=== PATIENT | female | born 1960 | race Caucasian/White ===

== ENCOUNTER 2016-05-30 16:19 | Inpatient (IN) | payer OTHER ==
--- NOTE | ~2016-05-30 | DS ---
Discharge Summary [facility] [address] [facility] [place]. [address] NAME: CLEMENTINE ECHEVARRIA : 60 STATUS : ADM IN [facility]#: [id number] AGE: 55 ADM/REG DATE : 05/30/16 MR#: [id number] REPORT SERV DATE: 06/16/16 DICTATED BY: EFREN GAY DATE: 06/15/16 REPORT STATUS : Draft TRANSCRIBED BY: MODL DATE: 06/15/16 ADMISSION DATE: 05/30/2016 DISCHARGE DATE: HISTORY: The patient is a 55-year-old female with a history of Crohn's disease and hypertension, who presented to the emergency room with a complaint of diarrhea, weakness, and syncopal episode. For further details, please refer to H and P dictated by Dr. Terry on 05/30/2016. HOSPITAL COURSE: Upon presenting to the emergency room, the patient acutely decompensated prompting transfer to the intensive care unit. For further details, please refer to interim discharge summary dictated by Dr. Torres on 06/11/2016. I assumed care of the patient on 06/12/2016. At the time of my assumption of care, the patient remained hemodynamically stable, however, she was significantly weak and her lipase level was markedly elevated. The patient was still being followed by Nephrology. The patient did have leukocytosis at the time of transfer out of the ICU. The patient's electrolytes and blood work was followed closely with significant improvement. For her legionella pneumonia, the patient was continued on antibiotics. Her lipase was monitored. At the time of discharge from ICU, the patient did have abdominal pain. However, during her course in the medical floor, her pain has progressively declined. Her lipase level is now within normal limits. Also, the patient did have episodes of atrial fibrillation in the intensive care unit, however, while on the floor, the patient has remained in normal sinus rhythm. Also, the patient has remained afebrile throughout her hospitalization with progressive improvement during her hospital course. Given her hemodynamic stability and significant improvement, the patient will be transferred to [facility] for rehab, plan has been discussed with the patient who voices understanding and is agreeable with this plan. DISCHARGE DIAGNOSES: 1. Leukocytosis. 2. Pancreatitis. 3. History of Crohn disease. 4. Hypokalemia. 5. Atrial fibrillation. 6. Hypertension. 7. Legionella pneumonia. DISCHARGE EXAM: VITAL SIGNS: Blood pressure 125/58 with a pulse of 94, respiration 18, O2 saturation 93% on room air, temperature 97.5. GENERAL: The patient is lying in bed, in no acute distress. Appears stated age. HEENT: Normocephalic, atraumatic. Extraocular motors intact. Moist oral mucosa. NECK: Right central line noted in the right. Trachea midline and symmetric. No JVD noted. CHEST: Nontender to palpation. CARDIOVASCULAR: Regular rate and rhythm. S1, S2. No murmurs, rubs, or gallops. LUNGS: Clear to auscultation bilaterally. ABDOMEN: Positive bowel sounds. Mild tenderness noted in the lower quadrant and superior pubic area. Discharge Summary [address] [address] NAME: CLEMENTINE ECHEVARRIA : 60 STATUS : ADM IN [facility]#: [id number] AGE: 55 ADM/REG DATE : 05/30/16 MR#: [id number] REPORT SERV DATE: 06/16/16 DICTATED BY: EFREN GAY DATE: 06/15/16 REPORT STATUS : Draft TRANSCRIBED BY: DALY DATE: 06/15/16 EXTREMITIES: No cyanosis, no clubbing, no edema. NEURO: Alert and oriented x3. No focal deficits appreciated. DISCHARGE MEDICATIONS: 1. Amiodarone 200 mg p.o. q.8 hours to stop on 06/19/2016. 2. Bumex 1 mg p.o. daily. 3. Cholestyramine 4 mg p.o. nightly. 4. Pepcid 40 mg IV p.o. at bedtime. 5. Levaquin 750 mg p.o. q.2 days. To stop 06/18/2016. 6. Melatonin 3 mg p.o. at bedtime. 7. Nicotine patch 14 mg topical daily. 8. Magjack mouthwash or MD Deluna mouthwash 5 mL p.o. liquid q.3 times daily. 9. Pantoprazole 40 mg p.o. daily. 10.Florastor 1 cap p.o. twice a day. 11.Valacyclovir 1000 mg p.o. at bedtime, to stop 06/18/2016. 12.DuoNebs. DISPOSITION: The patient will be discharged to [facility], activity as tolerated. DIET: Renal diet. Greater than 30 minutes was spent coordinating care, dictation of note, coordinating medical discharge, discussion of case with Case Management, and medication reconciliation. ANDREAS/DALY Efren Gay MD / [id number] CC: DO Froy Huston Jr., M.D.
--- NOTE | ~2016-05-30 | CN ---
Consultation Report [facility] [address] [place]. [address] NAME: CLEMENTINE ECHEVARRIA : 60 STATUS : ADM IN PAT#: [id number] AGE: 55 ADM/REG DATE : 05/30/16 MR#: [id number] REPORT SERV DATE: 05/31/16 DICTATED BY: DALLAS GIL DATE: 05/31/16 REPORT STATUS : Draft TRANSCRIBED BY: MODL DATE: 05/31/16 CONSULTATION DATE OF CONSULTATION: 05/31/2016 HISTORY OF PRESENT ILLNESS: This is a 55-year-old patient who was transferred to our service at the request of Dr. Irasema Olguin. The patient was admitted to the hospital on 05/30/2016 and has a known history of Crohn's disease, on immunotherapy, followed as an outpatient by Dr. Sanchez, and had developed progressive diarrhea and volume depletion over a week prior to admission. Apparently, she had a syncopal episode at home, became extremely weak, and had been down on the floor probably for several hours until her family finally found her. There were no associated fever or chills reported, no chest pain, profuse diarrhea was but it was not associated with nausea or vomiting. The patient was then subsequently admitted to the Hospitalist Service, and then we were asked to take over her care, concerns being hypoxia and pneumonia. The patient was subsequently transferred and upon arrival to the CCU, the patient was in atrial fibrillation with RVR, heart rate 140, blood pressure was elevated to the 160s, and in respiratory distress. She had severe metabolic acidosis and was found to have renal failure and rhabdomyolysis. The case was discussed with the family and they are currently in agreement with intubation and/or CRRT or dialysis if needed. The patient is in serious condition. ALLERGIES: THE PATIENT'S ALLERGIES ARE TO SULFA; HANH DRUGS, I AM NOT SURE WHAT HANH DRUGS ARE, WE WILL NEED TO CHECK WITH THE FAMILY ON THAT; AND PHENYLENEDIAMINE; ALL OF WHICH CAUSE SKIN PEELING. MEDICATIONS: Her home medications include Omnicef, Flexeril, hyoscyamine, Imodium, Align, Systane, Anucort, Stresstabs. PAST MEDICAL HISTORY: Significant for Crohn's, on Humira. She is status post tonsillectomy, cholecystectomy, hysterectomy, sphincterotomy, and nose basal cell carcinoma. SOCIAL HISTORY: Significant for smoking 1 pack a day, rare alcohol, and no illicit drug use. FAMILY HISTORY: Significant for colon cancer, premature heart attacks, and rheumatoid arthritis. REVIEW OF SYSTEMS: Could not be obtained from the patient since she is orally intubated and sedated. PHYSICAL EXAMINATION: VITAL SIGNS: Post intubation, temperature was 97.8; heart rate now 138, still atrial fibrillation; O2 saturation was in the 90s; blood pressure is 118/64. The patient was seen prior to intubation and appears in respiratory distress. Work of breathing was at least 28 to 30 times a minute. She is not diaphoretic. Consultation Report [facility] [address] [place]. [address] NAME: CLEMENTINE ECHEVARRIA : 60 STATUS : ADM IN [facility]#: [id number] AGE: 55 ADM/REG DATE : 05/30/16 MR#: [id number] REPORT SERV DATE: 05/31/16 DICTATED BY: DALLAS GIL DATE: 05/31/16 REPORT STATUS : Draft TRANSCRIBED BY: DALY DATE: 05/31/16 SKIN: Cool to touch. Complexion is somewhat kip. HEENT: Head is atraumatic and normocephalic. Pupils are sluggishly reactive. Sclerae are anicteric. Conjunctivae are pink. Nasal mucosa is within normal limits. Oral mucosa upon intubation was within normal limits. NECK: Supple without JVD, lymphadenopathy, or thyromegaly. LUNGS: Significant wheezing is heard throughout the right lung field. The left lung field is decreased at the bases. CARDIAC: Reveals an irregularly irregular rhythm. No significant murmurs are heard. BREASTS: Symmetrical without masses. GI: Abdomen is mildly distended. Bowel sounds are present. There is minimal pain to palpation of the abdomen. No organosplenomegaly is appreciated. RECTAL AND GENITAL: Deferred. Clay is in place. EXTREMITIES: Notable for multiple bruising and excoriation of the knees to where the patient fell. There is no skin breakdown. There is no significant bruising as of yet. DIAGNOSTIC STUDIES: Chest x-ray is significant for an infiltrate at the left lung base. CT scan of the chest showed multiple small enlarged lymph nodes of the mediastinum, numerous patchy infiltrates throughout upper and lower lobes with consolidation and atelectasis of the left lower lobe. CT scan of the abdomen: Numerous gas-filled loops of small intestines were seen. Early obstruction or diffuse ileus was suspected. There was some mild stranding of the perinephric tissues and retroperitoneum. No hydronephrosis was seen, and a small left pleural effusion was seen. Most recent electrolytes show a sodium of 122, a potassium of 4.0, chloride of 92, a bicarb of 14, a BUN of 52, a creatinine of 4.85, glucose 122. Troponin is 0.25. C-reactive protein was 346. Procalcitonin on admission was greater than 200. CBC earlier today showed a white cell count of 16.5, a hemoglobin of 11, a hematocrit of 33, a platelet count of 192. Myoglobin was 18,978. ALT was 210, AST 635. TSH was 1.33. Troponin was 0.25 and 0.27. There were T-wave inversions on the EKG laterally. ASSESSMENT AND PLAN: This is a 55-year-old patient with known Crohn's disease, on biologic drugs as per Dr. Sanchez, who presents with a week's worth of diarrhea, weakness, decreased p.o. intake, fall on the day of admission, rhabdomyolysis, acute kidney injury, and what appears to be pneumonia. Since the patient is on Humira, she may very well have atypical infection, so we are going to add a urine for Legionella and strep pneumoniae antigen, swab for flu A and B if not already done, and continue present antibiotics until culture results are back. The patient will be intubated secondary to respiratory distress and a sputum culture, Gram stain, and culture will be obtained. The patient already has blood cultures sent and they are pending. Stool still is yet to be sent. She was started on Vancocin as per GI for possible Clostridium difficile. 1. Acute kidney injury. We will consult Nephrology to evaluate for possible CRRT versus hemodialysis and ask Vascular Surgery to place a Vas-Cath. 2. The patient is extremely agitated and will be sedated with Diprivan and fentanyl added if needed. She may also need to be paralyzed at least short-term to gain better control of her respiratory rate and oxygenation. 3. Atrial fibrillation with rapid ventricular response. Amiodarone drip started as per protocol. Consultation Report [facility] [address]. [address] NAME: CLEMENTINE ECHEVARRIA : 60 STATUS : ADM IN PAT#: [id number] AGE: 55 ADM/REG DATE : 05/30/16 MR#: [id number] REPORT SERV DATE: 05/31/16 DICTATED BY: DALLAS GIL DATE: 05/31/16 REPORT STATUS : Draft TRANSCRIBED BY: MODL DATE: 05/31/16 4. Metabolic acidosis secondary to acute renal failure and rhabdomyolysis. We will need to follow levels closely and we will ask Renal's opinion. 5. Deep venous thrombosis prophylaxis will be with subcu heparin and gastrointestinal prophylaxis will be with IV Protonix. TOTAL TIME: Critical care time spent with this patient began at 4:05 p.m. and ended at 5:05 p.m. for a total time of 60 minutes of critical care time that was used to assess and manage complex metabolic derangements, respiratory failure, renal failure, and circulatory failure. The patient will need vasoactive manipulation, frequent ventilatory manipulation, volume resuscitation, hemodynamic assessment, and decisions regarding philosophy of care. /DALY Dallas Gil M.D. / [id number] CC: Irasema Olguin M.D.
--- NOTE | ~2016-05-30 | OP ---
Record Of Operation [facility] [address] [place]. [address] NAME: CLEMENTINE ECHEVARRIA : 60 STATUS : ADM IN [facility]#: [id number] AGE: 55 ADM/REG DATE : 05/30/16 MR#: [id number] REPORT SERV DATE: 05/31/16 DICTATED BY: ARABELLA VILLAGRAN DATE: 05/31/16 REPORT STATUS : Draft TRANSCRIBED BY: MODNael DATE: 05/31/16 DATE OF PROCEDURE: 05/31/2016 PREOPERATIVE DIAGNOSIS: Acute renal failure requiring hemodialysis. POSTOPERATIVE DIAGNOSIS: Acute renal failure requiring hemodialysis. PROCEDURE: 1. Ultrasound-guided percutaneous access, right internal jugular vein. 2. Placement of right internal jugular vein per Vas-Cath. SURGEON: Arabella Villagran M.D. ANESTHESIA: Local. ESTIMATED BLOOD LOSS: Minimal. COMPLICATIONS: None. INDICATIONS: Ms. Echevarria is a was 55-year-old female in the intensive care unit, critically ill with need of continuous renal replacement therapy. I am asked to place a Vas-Cath. DETAILS OF PROCEDURE: After informed consent was obtained, the patient was prepped and draped in the intensive care unit. I used ultrasound to identify the right internal jugular vein. It was widely patent and easily compressible. Permanent image of vein documenting patency was saved and stored in the patient's chart. I accessed with 18-gauge entry needle and easily passed the J-tipped guidewire. I enlarged the puncture site. I then dilated the subcutaneous tract. I then placed a 15 cm Vas-Cath over the wire without difficulty. Both ports aspirated dark venous blood and flushed easily with heparinized saline. Catheter was secured to the skin with silk suture. Sterile dressings were applied. The patient tolerated the procedure well with no complications. ADELINA/DALY Arabella Villagran M.D. / [id number] CC: Irasema Olguin M.D.
--- NOTE | ~2016-05-30 | CN ---
Consultation Report [facility] [address] [place]. [address] NAME: CLEMENTINE ECHEVARRIA : 60 STATUS : ADM IN [facility]#: [id number] AGE: 55 ADM/REG DATE : 05/30/16 MR#: [id number] REPORT SERV DATE: 05/31/16 DICTATED BY: JEFFREY CALDERÓN V. DATE: 05/31/16 REPORT STATUS : Draft TRANSCRIBED BY: DALY DATE: 05/31/16 RENAL CONSULT DATE OF CONSULTATION: 05/31/2016 REASON FOR CONSULTATION: Seen at the request of Dr. Gil on 05/31/2016, consultation regarding acute kidney injury. HISTORY OF PRESENT ILLNESS: Ms. Echevarria is a 55-year-old white female with history significant for Crohn disease, on chronic immunotherapy in the direction of Dr. Nathanael Sanchez. She has had diarrhea essentially persistently since 05/26/2016. She has had dizziness and very poor p.o. intake at home. She has had some falls at home and may have been down on the ground as long as 2 hours. The patient was admitted on 05/30/2016 with volume depletion and acute kidney injury secondary to this. Earlier today, the patient was very ill appearing and increased respiratory rate was noted. She was transferred to the ICU and subsequently intubated. She was found to be in significant rhabdomyolysis, and we were asked to see her for the acute need of emergent PULL WORKER. REVIEW OF SYSTEMS: Unobtainable due to the patient's current clinical status. PAST MEDICAL HISTORY: Crohn disease, on Humira therapy. PAST SURGICAL HISTORY: Includes tonsillectomy, cholecystectomy, hysterectomy, and basal cell carcinoma removal. SOCIAL HISTORY: Smoked one pack a day. No illicit drug use. ALLERGIES: SULFA DRUGS. HOME MEDICATIONS: Include Tylenol, Omnicef started on 05/28/2016, Flexeril, hyoscyamine, loperamide, probiotic, and vitamin D supplement. PHYSICAL EXAMINATION: VITAL SIGNS: Temperature is 98.6, heart rate 120, and blood pressure currently 137/70. GENERAL: She is a middle-aged white female, on the ventilator, sedated, no increased work of breathing. HEENT: Pupils equally, round, and reactive to light. Sclerae anicteric. Nares are patent bilaterally with no lesions. Oropharynx somewhat dry. No mucosal injury noted. ET tube in place. NECK: Trachea midline. No thyromegaly. No supraclavicular nodes. No axillary lymph nodes. CARDIOVASCULAR: Irregularly irregular rhythm. No rub. CHEST: Few scattered rhonchi bilaterally. ABDOMEN: Mildly distended. Bowel sounds are present. No guarding or rebound. No Consultation Report [facility] [address] [place]. [address] NAME: CLEMENTINE ECHEVARRIA : 60 STATUS : ADM IN PAT#: [id number] AGE: 55 ADM/REG DATE : 05/30/16 MR#: [id number] REPORT SERV DATE: 05/31/16 DICTATED BY: JEFFREY CALDERÓN V. DATE: 05/31/16 REPORT STATUS : Draft TRANSCRIBED BY: DALY DATE: 05/31/16 hepatosplenomegaly was appreciated. Trace lower extremity edema. No clubbing or cyanosis. SKIN: Abrasion noted on the right knee. No other skin lesions were noted. MUSCULOSKELETAL: No musculoskeletal joint tenderness or effusions were noted, however, in knees or ankles bilaterally. IMAGING: CT scan of the abdomen and pelvis done showed no hydronephrosis with dilated loops of small and large intestine. The chest x-ray reviewed by me showed infiltrate in right middle lobe with some haziness present in left lower lobe. LABORATORY DATA: BUN and creatinine 55 and 5.1, CO2 of 20. Sodium 124, potassium 4.1, CPK of 31,000. INR 1.2. White count 21.4, hematocrit 36%. Magnesium 2.8, phosphorus 7.4, albumin 2.1. Total bilirubin within normal limits. AST 1053, ALT 363. Troponin 0.39. IMPRESSION: A 55-year-old white female with acute kidney injury due to volume depletion as well as rhabdomyolysis on chronic immunosuppressive therapy for her Crohn disease. Severe sepsis is a distinct possibility. As stated above, most likely, her acute kidney injury is volume depletion related with perhaps a component of rhabdomyolysis induced injury. The patient profoundly acidotic and with respiratory and metabolic acidosis earlier today, now requiring intubation and mechanical ventilation. PLAN: 1. Proceed with PULL WORKER now with limited ultrafiltration. 2. Will use citrate as replacement fluid at this point, however, we need to monitor closely for signs of citrate toxicity. Her liver function tests as far as INR appear to be reasonable. She has some increased transaminases, AST being very elevated largely due to her muscle injury. 3. We will trend her sodium values as well as her serum sodium is somewhat low at 124. 4. Repeat a CPK in the morning as well. 5. All the above was discussed with the patient's family at the patient's bedside. They are amenable to initiation of PULL WORKER therapy. CP/MODL Jeffrey Calderón M.D. / [id number] CC: Irasema Olguin M.D.
--- NOTE | ~2016-05-30 | CN ---
Consultation Report [facility] [address] [place]. [address] NAME: CLEMENTINE ECHEVARRIA : 60 STATUS : ADM IN [facility]#: [id number] AGE: 55 ADM/REG DATE : 05/30/16 MR#: [id number] REPORT SERV DATE: 06/04/16 DICTATED BY: SID HOU DATE: 06/03/16 REPORT STATUS : Draft TRANSCRIBED BY: MODL DATE: 06/03/16 CARDIOLOGY CONSULTATION DATE OF CONSULTATION: 06/03/2016 INDICATIONS: Atrial fibrillation, RVR. HISTORY OF PRESENT ILLNESS: Ms. Clementine Echevarria is a 55-year-old female, who was initially admitted to the floor and then developed acute illness, transferred to the ICU with severe sepsis, respiratory failure. She has been found to have influenza as well as Legionella pneumonia. She has had intermittent episodes of atrial fibrillation with RVR. She had acute kidney injury, now requiring hemodialysis and vasopressor support. She had a low-grade troponin elevation with a maximum 0.56. Echocardiogram demonstrates normal ejection fraction. She is intubated. She has had intermittent episodes of atrial fibrillation since 05/31/2016. She was in sinus this morning, but now is back in atrial fibrillation with RVR. Cardiology is consulted. Other presenting issue was dramatic diarrhea. She is on immunosuppressive therapy with Humira for Crohn's disease. PAST MEDICAL HISTORY: As described, again notable for Crohn's disease, on immunosuppression with Humira. PRESENT MEDICATIONS: Amiodarone drip, folic acid, subcu heparin, sliding scale insulin, Solu Medrol, Habitrol, Tamiflu, Protonix, Levaquin, Levophed. She is actively receiving CRRT. ALLERGIES: SULFA AND DRUGS WITH A HANH IN THEM. SOCIAL HISTORY: History of smoking. FAMILY HISTORY: Reviewed and noncontributory. REVIEW OF SYSTEMS: As per the HPI. Otherwise, all review of systems negative. PHYSICAL EXAMINATION: VITAL SIGNS: Blood pressure currently 110/70, heart rate is 110, respiratory rate is 18. GENERAL: Appears stated age, no distress. EYES: Sclerae anicteric, no arcus senilis. MOUTH: Oral mucosa moist, lips acyanotic. NECK: Jugular venous pressure normal, no carotid bruits. LUNGS: Coarse breath sounds, diffuse. CARDIAC: Irregular rhythm, tachycardic. No murmurs, gallops or rubs. ABDOMEN: Soft, nondistended, nontender. Consultation Report [facility] [address] [place]. [address] NAME: CLEMENTINE ECHEVARRIA : 60 STATUS : ADM IN PAT#: [id number] AGE: 55 ADM/REG DATE : 05/30/16 MR#: [id number] REPORT SERV DATE: 06/04/16 DICTATED BY: SID HOU DATE: 06/03/16 REPORT STATUS : Draft TRANSCRIBED BY: DALY DATE: 06/03/16 EXTREMITIES: No edema. SKIN: Warm and dry. NEURO/PSYCH: Sedated. DATA: Sodium is 134, potassium 3.8, creatinine 1.4, hemoglobin is 10.4, white count is 40,000. CPK is 3000, procalcitonin 67, AST and ALT are abnormal. Electrocardiogram demonstrates atrial fibrillation with a rate of 129 beats per minute. Delayed R-wave progression. Chest x-ray consistent with possible consolidation. IMPRESSION: Paroxysmal atrial fibrillation in the context of acute illness with sepsis, influenza, Legionella, acute kidney injury with CRRT, Crohn's disease, and immunosuppression. In terms of atrial fibrillation with rapid ventricular response, we will increase her amiodarone infusion, continue 1 mg/minute for the next 10 hours, re-bolus intravenous amiodarone. Add low-dose beta-steve for additional rate control Levophed noted. May be difficult to achieve heart rate control in the context of multiple drivers for rapid ventricular response. FELTON/DALY Sid Hou M.D. / [id number] CC: Ambreen Tinajero Jr., M.D.
--- NOTE | ~2016-05-30 | OP ---
Record Of Operation [facility] [address] [address] NAME: CLEMENTINE ECHEVARRIA : 60 STATUS : ADM IN [facility]#: [id number] AGE: 55 ADM/REG DATE : 05/30/16 MR#: [id number] REPORT SERV DATE: 05/31/16 DICTATED BY: DALLAS GIL DATE: 05/31/16 REPORT STATUS : Draft TRANSCRIBED BY: MODL DATE: 05/31/16 DATE OF PROCEDURE: 05/31/2016 PROCEDURE: Intubation. REASON: Acute respiratory failure. The patient and family are agreeable to intubation. DESCRIPTION OF PROCEDURE: The patient was pre-oxygenated with 100% oxygen and sedated with Diprivan at 10 mL and 20 mg of IV etomidate. GlideScope was used. Vocal cords were well visualized. A 7.5 endotracheal tube was placed on the first attempt with good breath sounds heard bilaterally. CO2 sensor changed appropriate color from blue to yellow. The patient tolerated the procedure well. /DALY Dallas Gil M.D. / [id number] CC: Irasema Olguin M.D.
--- NOTE | ~2016-05-30 | HP ---
History And Physical [place] [id number] [facility] [place]. [address] NAME: CLEMENTINE ECHEVARRIA : 60 STATUS : ADM IN [facility]#: [id number] AGE: 55 ADM/REG DATE : 05/30/16 MR#: [id number] REPORT SERV DATE: 05/30/16 DICTATED BY: ZAKIA SANCHEZ DATE: 05/30/16 REPORT STATUS : Draft TRANSCRIBED BY: DALY DATE: 05/30/16 DATE OF ADMISSION: 05/30/2016 CHIEF COMPLAINT: Approximately one week of diarrhea, weakness, and syncope episode approximately 30 minutes earlier today. HISTORY OF PRESENT ILLNESS: The patient is a 55-year-old female with past medical history of Crohn's disease, followed by Dr. Sanchez on immunotherapy, who over the last week has had progressive diarrhea, volume depletion, dizziness, decreased p.o. intake, however, acute change today when she had tried Imodium supportively without any improvement. Today, she had an episode which she had a syncopal episode, fell out, significant weakness, and had to crawl to the telephone to get help. Upon arrival, the patient is noted to be clinically volume depleted, has had decreased urine output. The symptoms were intermittent, but moderate severity lasting around 30 minutes, quality no pain or radiating symptoms, but has still had a pronounced diarrhea, but no nausea or vomiting. No Fever or chills reported. There were no worsening or relieving symptoms that the patient will call. The patient is accompanied by her who is at bedside. This is her first actual admission for Crohn's flare, as the patient is usually fairly well controlled under care with Dr. Sanchez. The patient denies any recent triggers, any sick contacts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 REVIEW OF SYSTEMS: GENERAL: No fevers, but does have occasional coldness more than usual and hot sweats at times. EYES: No eye pain or visual changes. ENT: No sore throat or congestion. NEURO: No headache, but did have loss of consciousness and syncope episode approximately 30 minutes. No loss of bowel or bladder at that time reported. SKIN: Does have abrasions on trauma sites when she fell and bruising and deep muscle pain. RESPIRATORY: No dyspnea on exertion or cough. CV: No chest pain or palpitations. GI: Diarrhea with Crohn's disease. No acute bleeding, but no nausea or vomiting. : No dysuria or hematuria. MUSCULOSKELETAL: Deep muscle and bone myalgias and arthralgias over the last four days. ENDO: Does have fatigue and no polyuria. HEME: No bleeding or bruising. IMMUNOLOGIC: Rhinorrhea. PSYCH: No anxiety or confusion. PAST MEDICAL HISTORY: Crohn's, on Humira. SURGERIES: Tonsils, gallbladder, hysterectomy, sphincterotomy, and nose basal cell. SOCIAL HISTORY: Smoking at one pack per day tobacco smoker. Rare alcohol. No illicits. History And Physical [address] [address] NAME: CLEMENTINE ECHEVARRIA : 60 STATUS : ADM IN [facility]#: [id number] AGE: 55 ADM/REG DATE : 05/30/16 MR#: [id number] REPORT SERV DATE: 05/30/16 DICTATED BY: ZAKIA SANCHEZ DATE: 05/30/16 REPORT STATUS : Draft TRANSCRIBED BY: DALY DATE: 05/30/16 FAMILY HISTORY: Heart disease, colon cancer, premature heart attack in family member and mother has rheumatoid arthritis. ALLERGIES: TO HANH DRUGS, PHENYLENEDIAMINE, SULFA. MEDICATIONS: Tylenol, cefdinir, Flexeril, Anaspaz, Imodium, Align, Systane, Digestive Advantage, Angicor, and stress tab. EKG: Rate 123, sinus tachycardia with PACs. Rate QTc 423. PHYSICAL EXAMINATION: VITAL SIGNS: The patient's blood pressure 104/61, temperature 98.7, pulse 122, respirations 18, O2 sats 90% on room air. GENERAL: No acute distress, but very frail looking. EYES: No scleral icterus. EOMI. ENT: Nares patent, but dry mucous membranes. Tongue midline. RESPIRATORY: Clear to auscultation. No wheezes or rales. CV: Mildly tachycardic. No rubs or gallops. No pedal edema. CHEST: Equal chest rise. GI: Soft, nontender, and nondistended. Central obesity. : Deferred. MUSCULOSKELETAL: Does have abrasion on the right knee from fall site, otherwise moves all extremities x4. SKIN: Mottled knees, but warm. Abrasion at trauma sites. LYMPH: No cervical or supraclavicular lymphadenopathy. HEME: Bleeding at fall site, but no acute bruising. NEURO: Alert and oriented. Moves all extremities x4. Symmetrical strength. PSYCH: Appropriate mood and affect, pleasant. LABS: Sodium of 123, potassium 3.4, chloride 88, bicarb 19, BUN 40, creatinine 3.41, glucose 110, calcium 8.1, magnesium 3.3, with a troponin of 0.37. Heme profile: WBC count of 15.2, H and H 14.2 and 39.9, platelets 185, bands 35. INR 1.2. Brain without contrast, no acute intracranial pathology reported. ASSESSMENT: 1. Crohn's flare. 2. Acute kidney injury. 3. Volume depletion. 4. Syncope. 5. Hyponatremia. 6. Troponin elevation with likely type 2 myocardial infarction. 7. Metabolic acidosis. 8. Systemic inflammatory response syndrome with bandemia. 9. Tobacco use. PLAN: History And Physical [address] [address] NAME: CLEMENTINE ECHEVARRIA : 60 STATUS : ADM IN [facility]#: [id number] AGE: 55 ADM/REG DATE : 05/30/16 MR#: [id number] REPORT SERV DATE: 05/30/16 DICTATED BY: ZAKIA SANCHEZ DATE: 05/30/16 REPORT STATUS : Draft TRANSCRIBED BY: DALY DATE: 05/30/16 1. For Crohn's flare, IV steroids, IV fluids, IV antibiotics. Continue supportive treatment. H and H, still within normal limits. We will ask Dr. Sanchez for additional assistance due to severity and multiorgan effect. 2. Acute kidney injury. IV fluids, volume depletion. Monitor electrolytes closely. Check ultrasound of kidneys and urine studies. 3. Volume depletion. IV fluids. Does have skin mottling that is likely secondary to profound diarrhea episode from acute Crohn's flare. 4. The Crohn's flare. 5. Syncope. Treat. a. CT head negative. b. Monitor on telemetry, troponins, and ECG. 6. Hyponatremia. Serial sodium checks and normal saline, likely secondary to acute, decreased from Crohn's flare. 7. Troponin elevation, likely with a type 2 supply demand mismatch, but does have coronary history and family with premature coronary disease. No dynamic ST changes. We will monitor EKG and serial troponins. Treat underlying pathology with Crohn's flare and acute kidney injury, hyponatremia, metabolic acidosis, and systemic inflammatory response syndrome. Needs to stop smoking. 8. Metabolic acidosis. Check salicylate and Tylenol levels. Additionally, CPK and myoglobin as the patient had syncope episode and was found on floor. Monitor electrolytes with serial basic metabolic panels until improved. 9. Systemic inflammatory response syndrome. Treat. a. Tachycardia, tachypnea with positive bandemia. IV antibiotics for treatment of Crohn's flare, but will need close monitoring with IV steroids which are also being currently given secondary to Crohn's flare. 10.Tobacco use. Counseled nicotine patch. 11.Guarded prognosis at this time secondary to multitude and multiorgan injury. This has been discussed with the patient and family at bedside. Has to stay greater than two midnight inpatient stay. DDN/MODL Zakia Sanchez MD / [id number] CC: Ambreen Palomino Jr., M.D.
--- NOTE | ~2016-05-30 | CN ---
Consultation Report [facility] [address] [place]. [address] NAME: CLEMENTINE ECHEVARRIA : 60 STATUS : ADM IN [facility]#: [id number] AGE: 55 ADM/REG DATE : 05/30/16 MR#: [id number] REPORT SERV DATE: 06/01/16 DICTATED BY: WELLINGTON MARSHALL DATE: 05/31/16 REPORT STATUS : Draft TRANSCRIBED BY: DALY DATE: 05/31/16 GI CONSULTATION DATE OF CONSULTATION: 05/31/2016 REASON FOR CONSULTATION: Regarding diarrhea and Crohn disease. HISTORY OF PRESENT ILLNESS: This is a 55-year-old woman who presented to the emergency room with dizziness and syncope as well as weakness. She had been doing relatively well until the past 7 to10 days, at which point she had increase in diarrhea symptoms, multiple stools at least 10 per day without blood. She has had intermittent migratory abdominal cramping relieved with a bowel movement. Some nausea but no vomiting. No significant GERD or dysphagia. She has had fever as well. She does take Humira weekly for Crohn disease and had her last dose about one week ago. She is managed by Dr. Sanchez. Last colonoscopy in 2014 showed ulcerations within the ileum and colon polyps removed. MEDICAL HISTORY: Remarkable for Crohn disease as above, cholecystectomy, tonsillectomy, hysterectomy, sphincterotomy noted in the chart, and nasal basal cell carcinoma. ALLERGIES: SULFA AND HANH DRUGS AND PHENYLENEDIAMINE. MEDICATIONS: Tylenol, cefdinir, Flexeril, Anaspaz, Imodium, Align, polyethylene glycol, Digestive Advantage, Anucort, stress tab with vitamin B. Medications in the hospital include folic acid, Habitrol patch, subcu heparin, Levaquin, Flagyl, insulin, and Solu-Medrol 60 mg IV every 12 hours. SOCIAL HISTORY: She does not use alcohol, but does smoke. FAMILY HISTORY: Remarkable for colorectal cancer in first degree relative. REVIEW OF SYSTEMS: A complete review of systems was obtained and negative except that noted in the history of present illness. PHYSICAL EXAMINATION: VITAL SIGNS: She is currently afebrile. Her temperature is 101.1 pulse 108, respirations 26, and blood pressure 156/87. HEENT: Sclerae anicteric. Pharynx is pink without exudate. NECK: Supple without lymphadenopathy. LUNGS: Clear to auscultation over the anterior chest wall. HEART: Tachycardic rate with a regular rhythm. S1, S2 are heard without rubs or gallops. ABDOMEN: Diminished bowel sounds. Belly is soft and nondistended. There is mild diffuse tenderness without rebound or guarding. No hepatosplenomegaly is detected. Overall, benign abdomen. Consultation Report [place] [address] [place]. [address] NAME: CLEMENTINE ECHEVARRIA : 60 STATUS : ADM IN [facility]#: [id number] AGE: 55 ADM/REG DATE : 05/30/16 MR#: [id number] REPORT SERV DATE: 06/01/16 DICTATED BY: WELLINGTON MARSHALL DATE: 05/31/16 REPORT STATUS : Draft TRANSCRIBED BY: DALY DATE: 05/31/16 EXTREMITIES: No pedal edema or rash. NEUROLOGIC: Alert and oriented without focal deficit. Muscle exam is nontender. DATA: White blood cell count 15.2, hematocrit 39.9, MCV 83, platelets 185. She does have a left shift. Her INR is 1.2. Procalcitonin is greater than 200. Sodium 123, bicarb 19, BUN is 40, creatinine 3.41, magnesium is 3.3, calcium 8.1. ALT 210 and AST 635. Troponin 0.37. TSH normal. Chest x-ray shows left lower lobe abnormality, question consolidation. IMPRESSION: 1. Acute on chronic diarrhea with leukocytosis and very elevated procalcitonin. Recent antibiotics question Clostridium difficile colitis. 2. Sepsis. Physiology including acidemia, elevated liver tests, leukocytosis, and fever. 3. Acute renal failure and volume depletion. 4. Crohn disease, on weekly Humira. RECOMMENDATIONS: 1. Empirically over for C. difficile with oral vancomycin and check stool studies for C. difficile toxin, parasite, and culture. Continue intravenous Flagyl. 2. Cover with Levaquin for now given the chest x-ray finding. Await C. difficile toxin. 3. CT of the chest, abdomen, and pelvis. 4. Blood cultures, urinalysis and culture, CRP. 5. Acute hepatitis panel for A, B, and C. 6. Reduce Solu-Medrol to 30 mg IV every 12 hours. 7. Intravenous fluids. 8. Discussed the plan with the patient and family. CC/MODL Wellington Marshall M.D. / [id number] CC: Ambreen Tinajero Jr., M.D. Munford Yates III, M.D.
--- NOTE | ~2016-05-30 | IDS ---
Interim Discharge Summary [facility] [address] [place]. [address] NAME: CLEMENTINE ECHEVARRIA : 60 STATUS : ADM IN [facility]#: [id number] AGE: 55 ADM/REG DATE : 05/30/16 MR#: [id number] REPORT SERV DATE: 06/07/16 DICTATED BY: TALAT HERNANDEZ DATE: 06/07/16 REPORT STATUS : Draft TRANSCRIBED BY: MODL DATE: 06/07/16 ADMISSION DATE: 05/30/2016 DISCHARGE DATE: 05/31/2016 INTERIM DIAGNOSES: 1. Acute hypoxic and hypercapnic respiratory failure. 2. Acute renal failure. 3. Rhabdomyolysis. 4. Atrial fibrillation with rapid ventricular response. 5. Septic shock. 6. Influenza and Legionella pneumonia. 7. Crohn's disease. 8. Persistent marked leukocytosis. ICU COURSE: Please see the dictated H and P and consult notes for full patient presentation and history. BRIEF SUMMARY: This is a 55-year-old, white female with past medical history of Crohn's disease on chronic immunosuppression who was initially admitted to the hospital and then transferred to the ICU back on the with respiratory failure, pneumonia, acute renal failure with metabolic acidosis, rhabdomyolysis, and rapid atrial fibrillation. Her hospital course this week has continued to be complicated by respiratory failure with inability to wean from the ventilator. Continued acute renal failure, [id number] atrial fibrillation, and a persistent leukocytosis. 1. Acute hypoxic and hypercapnic respiratory failure. The patient made very slow progress on the ventilator this week though she has not worsened. I suspect her respiratory failure is more likely ARDS secondary to her pneumonia rather than volume from her renal failure. Despite aggressive volume removal this week, her chest x-ray has only showed mild improvement as has her ability to wean from the ventilator which leads me to think this is more ARDS. We will continue weaning slowly each day and I have already talked to the patient's family about potential for tracheostomy next week if she is unable to wean from the ventilator. 2. Acute renal failure. The patient has remained on CRRT this week per Renal. We were pulling volume aggressively, however, in the last 48 hours had to go up on her pressor requirement quite dramatically. So currently we are running her with no volume removal so as not to worsen her shock. 3. Atrial fibrillation, rapid ventricular response. Cardiology is following and assisting in management of this, has been very difficult to control this week. Currently, she is in sinus rhythm and remains on the amiodarone drip. 4. Septic shock. She remains on low-dose Levophed and vasopressin. 5. Persistent leukocytosis. The patient has had markedly elevated white count in the 40,000s for most of the week. Unclear to this etiology. ID has been following and assisting with managing her antibiotics. We added empiric antifungals 2 days ago and her white count today is beginning to trend down. The oncoming signal engineer will take over tomorrow. Please call if you have any questions. Interim Discharge Summary [address] [place]. [address] NAME: CLEMENTINE ECHEVARRIA : 60 STATUS : ADM IN [facility]#: [id number] AGE: 55 ADM/REG DATE : 05/30/16 MR#: [id number] REPORT SERV DATE: 06/07/16 DICTATED BY: TALAT HERNANDEZ DATE: 06/07/16 REPORT STATUS : Draft TRANSCRIBED BY: DALY DATE: 06/07/16 JESSICA/DALY Talta Hernandez MD / [id number] CC: Ambreen Tinajero Jr., M.D.
--- NOTE | ~2016-05-30 | IDS ---
Interim Discharge Summary [facility] [address] [place]. [address] NAME: CLEMENTINE ECHEVRARIA : 60 STATUS : ADM IN [facility]#: [id number] AGE: 55 ADM/REG DATE : 05/30/16 MR#: [id number] REPORT SERV DATE: 06/11/16 DICTATED BY: WELLINGTON TORRES DATE: 06/11/16 REPORT STATUS : Draft TRANSCRIBED BY: MODL DATE: 06/11/16 ADMISSION DATE: 05/30/2016 DISCHARGE DATE: INTERIM SUMMARY DIAGNOSES: 1. Acute hypoxic and hypercapnic respiratory failure. 2. Acute kidney injury. 3. Rhabdomyolysis. 4. Atrial fibrillation with rapid ventricular response. 5. Septic shock. 6. Influenza and Legionella pneumonia. 7. Crohn disease. 8. Vomiting. Please see initial dictated H and P, fitness consultant notes for initial presentation. HOSPITAL COURSE: Briefly, this is a 55-year-old female with past medical history of Crohn disease, on chronic immunosuppression with Humira. She presented to the hospital with issues of diarrhea and acute kidney injury and had to come to the ICU on 05/31/2016 with respiratory failure requiring intubation and placement on mechanical ventilation. She developed influenza and Legionella pneumonia. Infectious Disease was consulted. They had the patient on Tamiflu and Levaquin. She developed renal failure and had to be put on CRRT for renal replacement therapy. Vas-Cath was placed by Vascular. The acute kidney injury also was worsened by the initial rhabdomyolysis that she developed. She also had a critical illness and atrial fibrillation with RVR for which Cardiology was involved and put the patient on amiodarone. During the course of my week, she continued to improve from a respiratory standpoint, and we were able to gradually wean her from the ventilator and extubated her a couple of days ago. She had been on CRRT this whole week and was stopped by Nephrology, and they are going to monitor her renal function numbers and her urine output. She still does intermittently develop atrial fibrillation, so she is still on IV amiodarone which will have to be addressed before discharge. GI was reconsulted on this admission after they signed off because she was having persistent vomiting and diarrhea not being relieved by antibiotics. For septic shock, she was on vasopressors for a while that include Levophed and vasopressin, but those were weaned off before she was even extubated off the ventilator. She will be transferred to the floor for ongoing medical care by the hospitalist group. CEP/MODL Wellington Torres DO / [id number] CC: Interim Discharge Summary [address] [address] NAME: CLEMENTINE ECHEVARRIA : 60 STATUS : ADM IN [facility]#: [id number] AGE: 55 ADM/REG DATE : 05/30/16 MR#: [id number] REPORT SERV DATE: 06/11/16 DICTATED BY: WELLINGTON TORRES DATE: 06/11/16 REPORT STATUS : Draft TRANSCRIBED BY: MODL DATE: 06/11/16 Wellington Torres DO
--- NOTE | ~2016-05-30 | CN ---
Consultation Report [facility] [address] [place]. [address] NAME: CLEMENTINE ECHEVARRIA : 60 STATUS : ADM IN PAT#: [id number] AGE: 55 ADM/REG DATE : 05/30/16 MR#: [id number] REPORT SERV DATE: 06/04/16 DICTATED BY: ARABELLA GUNN DATE: 06/04/16 REPORT STATUS : Draft TRANSCRIBED BY: MODL DATE: 06/04/16 INFECTIOUS DISEASE CONSULT DATE OF CONSULTATION: REASON FOR REFERRAL: Evaluation and treatment of leukocytosis. HISTORY OF PRESENT ILLNESS: The patient is a 55-year-old female. She has a history of Crohn disease, for which she is on Humira. She came in on 06/04/2016 with one week of worsening illness characterized by increased diarrhea, increasing progressive weakness to the point that she was found down on the floor by family with uncertain how long she had been down. She had a normal temperature, but an elevated white blood cell count. She had evidence of rhabdomyolysis. She was hypotensive and septic appearing, required intubation. She was in renal failure and was started on CRRT. She had infiltrates on her chest x-ray, was worked up for pneumonia. Among the results included a positive rapid flu test for influenza B and also a positive urine antigen for Legionella. She was begun initially on vancomycin, Flagyl, and Levaquin, was given a dose of Zosyn as well, and was begun on Tamiflu. Since the 06/01/2016, she has been only on Levaquin and Tamiflu. She has shown some improvement in her chest x-ray. A procalcitonin which was greater than 200 has come down to 67. Her temperature shortly after admission was 101.1. She only really had one more significant fever on 06/03/2016 of 101, but she has been on CRRT. She has also received steroids and those are gradually being tapered. Of concern is her white blood cell count which was elevated at the time that she came in at 15.2, jesus to 21.5 and then 25.7 on the 06/01/2016, was 38.3 on the 06/02/2016, then 40.6 on the 06/03/2016, 46.6 the evening of 06/03/2016, and 44.9 today. The differential has shown persistent bandemia ranging as high as 67% early in the hospitalization, down to 17% bandemia today. She had stools for C diff ordered, but has not had diarrhea. Her chest x-ray is improving. Her procalcitonin is coming down. She has developed no rashes, no skin or soft tissue lesions. Abdomen has generally been benign. There has been no obvious other source of infection. Blood cultures were checked at admission and repeated twice since then, most recently on 05/31/2016, and those have all been negative. No history of unusual environmental exposures prior to her coming in. PAST MEDICAL HISTORY: Otherwise, unremarkable. MEDICATIONS: As described above. ALLERGIES: SHE HAS ALLERGY TO SULFA, WHICH CAUSES RASH. SHE WAS AN ACTIVE SMOKER PRIOR TO COMING IN, HAS NO HISTORY OF ALCOHOL OR SUBSTANCE ABUSE. SHE IS , DISABLED, NOT WORKING OUTSIDE OF HOME. FAMILY HISTORY: Noncontributory. PHYSICAL EXAMINATION: GENERAL: Ill-appearing adult female, lying quietly in bed. She is orotracheally intubated and sedated, and so unresponsive. Consultation Report [address] [place]. [address] NAME: CLEMENTINE ECHEVARRIA : 60 STATUS : ADM IN [facility]#: [id number] AGE: 55 ADM/REG DATE : 05/30/16 MR#: [id number] REPORT SERV DATE: 06/04/16 DICTATED BY: ARABELLA GUNN DATE: 06/04/16 REPORT STATUS : Draft TRANSCRIBED BY: DALY DATE: 06/04/16 VITAL SIGNS: Her temperature most recently 97 with a pulse of 82, respirations 23, blood pressure 79/42, weight 87 kg. HEENT: Her sclerae are clear, unable to visualize her mouth. NECK: Supple. LUNGS: There are scattered crackles heard anteriorly, otherwise clear. HEART: Regular rate and rhythm. ABDOMEN: Slightly distended, but no reaction to palpation. Positive bowel sounds are heard. EXTREMITIES: Without clubbing, cyanosis. No swollen, red, or hot joints. No skin lesions or rashes noted. IV site shows no signs of inflammation. LABORATORY DATA: White blood cell count as previously mentioned. Hematocrit 28 today, platelets 170. BUN and creatinine 15 and 1.23 on CRRT. Calcitonin as mentioned last checked on 06/03/2016 was 67, down from greater than 200. IMPRESSION: Persistent leukocytosis, it certainly could be a steroid effect, but the diff is atypical for that with a high level of bands. This also could be just delayed improvement due to her prior immune-compromised state and having two severe life endangering infections. I do not see anything new or additional at this point. RECOMMENDATIONS: 1. Agree with Tamiflu. Would treat longer than the usual five days in an immune- compromised state. 2. Agree with Levaquin. 3. Would not add anything for now. 4. We will follow closely, re-evaluate tomorrow with repeat CBC, and procalcitonin. 5. I will follow the patient with you. I appreciate very much your consulting on this patient. RUI/DALY Arabella Gunn M.D. / [id number] CC: Ambreen Tinajero Jr., M.D.
[2016-05-30 14:31] LABS: BASOPHILS 0.3 %; BASOPHILS ABSOLUTE 0.04 10/3/uL (0.0-0.16); EOSINOPHILS 0 %; HEMATOCRIT 39.9 % (36.0-48.0); HEMOGLOBIN 14.2 g/dL (12.0-16.0); IMMATURE GRANULOCYTES 3.1 %; LYMPHOCYTES 9.4 %; LYMPHOCYTES ABSOLUTE 1.44 10/3/uL (0.67-4.30); MEAN CORPUSCULAR HEMOGLOB 29.5 pg (26.0-34.0); MEAN PLATELET VOLUME 10.5 fL (9.2-13.0); MONOCYTES 4.6 %; NEUTROPHILS 82.6 %; NEUTROPHILS ABSOLUTE 12.59 10/3/uL (2.02-8.40); RBC DISTRIBUTION WIDTH 14.4 % (12.0-16.0); RED CELL COUNT 4.81 10/6/uL (4.0-5.6)
[2016-05-30 14:32] LABS: ER CBC TAT 0 Hrs 08 Mins; IMMATURE GRANULOCYTES ABSOLUTE 0.47 10/3/uL (0.0-0.11); MANUAL DIFF NO %; MEAN CORPUS HGB CONC 35.6 g/dL (32.0-36.0); PLATELET COUNT 185 10/3/uL (150-400); WHITE BLOOD CELLS 15.2 10/3/uL (4.5-10.5)
[2016-05-30 14:35] LABS: INTERNATIONAL NORMAL RATI 1.2 UNITS (-); PARTIAL THROMBO TIME 33.5 SEC (22.5-37.2); PROTIME (NOT ORD) 15.4 SEC (12.0-14.5)
[2016-05-30 14:46] LABS: BAND NEUTROPHILS 35 %; ER DIFF TAT 0 Hrs 22 Mins; IMMATURE GRANS ABSOLUTE (CALC) 0.46 10/3/uL (0.0-0.11); LYMPHOCYTES 13 %; LYMPHOCYTES ABSOLUTE (CALC) 1.98 10/3/uL (0.67-4.30); METAMYELOCYTES 3 %; MONOCYTES 6 %; MONOCYTES ABSOLUTE (CALC) 0.91 10/3/uL (0.21-1.20); NEUTROPHILS ABSOLUTE (CALC) 11.86 10/3/uL (2.02-8.40); SEGMENTED NEUTROPHIL (0) 43 %; TOTAL NUCLEATED CELLS 100
[2016-05-30 14:47] LABS: BUN (BLOOD UREA NITROGEN) 40 MG/DL (6-23); CALCIUM, SERUM 8.1 MG/DL (8.5-10.4); CHLORIDE, SERUM 88 MMOL/L (96-112); CO2 (CARBON DIOXIDE) 19 MMOL/L (24-34); CREATININE 3.41 MG/DL (0.55-1.02); GFR AFRICAN AMERICAN 17 ML/MIN (>=60); GFR NON AFRICAN AMERICAN 14 ML/MIN (>=60); GLUCOSE, SERUM 110 MG/DL (60-99); POTASSIUM, SERUM 3.4 MMOL/L (3.5-5.3)
[2016-05-30 14:48] LABS: SODIUM, SERUM 123 MMOL/L (135-148)
[2016-05-30 14:49] LABS: CHEST PAIN PROFILE TAT 0 Hrs 25 Mins; TROPONIN I 0.37 NG/ML (<0.05)
[2016-05-30 14:53] LABS: PLATELET ESTIMATE ADQ (ADEQUATE); RBC MORPHOLOGY NORM (NORMAL); TOXIC GRANULATION SLT
[~2016-05-30 16:19] MED LIST: ACET500CAP PO; ALIGN4 MG PO; ANASPAZ0.125 MG PO; ANUCORT PR; DIGESTIVE ADVANTAGE PO; FLAG500TAB PO; FLEX PO; IMOD PO; OMNICEF300 PO; PENTASA500 MG PO; STRESS 500 PO; STRESSIRON PO; SYSTANE OPH; [UNRECOGNIZED DRUG - OTHER] PO
[2016-05-30 22:49] LABS: A/G RATIO 0.8 (0.7-1.9); ALKALINE PHOSPHATASE 58 U/L (45-117); GLOBULIN 3.6 G/DL (2.5-4.1); SGOT(AST) 635 U/L (5-40); SGPT(ALT) 210 U/L (5-65); TOTAL BILIRUBIN 0.5 MG/DL (0-1.2); TOTAL PROTEIN 6.6 G/DL (6.0-8.5)
[2016-05-30 22:57] LABS: PROCALCITONIN > 200.00 ng/mL (<0.5)
[2016-05-31 07:44] LABS: HEMOGLOBIN 11.5 g/dL (12.0-16.0); MEAN CORPUS HGB CONC 34.8 g/dL (32.0-36.0); MEAN CORPUSCULAR HEMOGLOB 28.3 pg (26.0-34.0); MEAN CORPUSCULAR VOLUME 81.3 fL (80-100); MEAN PLATELET VOLUME 11.7 fL (9.2-13.0); PLATELET COUNT 192 10/3/uL (150-400); RBC DISTRIBUTION WIDTH 15.1 % (12.0-16.0); RED CELL COUNT 4.06 10/6/uL (4.0-5.6); WHITE BLOOD CELLS 16.5 10/3/uL (4.5-10.5)
[2016-05-31 07:47] LABS: MANUAL DIFF YES %
[2016-05-31 08:08] LABS: BAND NEUTROPHILS 58 %; LYMPHOCYTES 3 %; METAMYELOCYTES 3 %; MONOCYTES 1 %; MONOCYTES ABSOLUTE (CALC) 0.17 10/3/uL (0.21-1.20); NEUTROPHILS ABSOLUTE (CALC) 15.35 10/3/uL (2.02-8.40); PLATELET ESTIMATE ADQ (ADEQUATE); RBC MORPHOLOGY NORM (NORMAL); SEGMENTED NEUTROPHIL (0) 35 %; TOTAL NUCLEATED CELLS 100; TOXIC GRANULATION 1+; VACUOLATED NEUTROPHILES OCC
[2016-05-31 08:14] LABS: CHLORIDE, SERUM 89 MMOL/L (96-112); CK-MB 92.8 NG/ML; CO2 (CARBON DIOXIDE) 16 MMOL/L (24-34); GLUCOSE, SERUM 114 MG/DL (60-99); MYOGLOBIN, SERUM 18978 NG/ML (0-85); POTASSIUM, SERUM 3.7 MMOL/L (3.5-5.3); SODIUM, SERUM 121 MMOL/L (135-148)
[2016-05-31 08:17] LABS: BUN (BLOOD UREA NITROGEN) 51 MG/DL (6-23); CALCIUM, SERUM 7.1 MG/DL (8.5-10.4); CREATININE 4.42 MG/DL (0.55-1.02); GFR AFRICAN AMERICAN 12 ML/MIN (>=60); GFR NON AFRICAN AMERICAN 11 ML/MIN (>=60)
[2016-05-31 09:19] LABS: CKMB INDEX (NOT ORD) 0.3; CPK 30473 U/L (0-200)
[2016-05-31 12:22] LABS: BUN (BLOOD UREA NITROGEN) 52 MG/DL (6-23); CALCIUM, SERUM 7.2 MG/DL (8.5-10.4); CHLORIDE, SERUM 92 MMOL/L (96-112); CREATININE 4.85 MG/DL (0.55-1.02); GFR AFRICAN AMERICAN 11 ML/MIN (>=60); GFR NON AFRICAN AMERICAN 9 ML/MIN (>=60); GLUCOSE, SERUM 122 MG/DL (60-99); SODIUM, SERUM 122 MMOL/L (135-148)
[2016-05-31 12:23] LABS: CO2 (CARBON DIOXIDE) 14 MMOL/L (24-34); TROPONIN I 0.25 NG/ML (<0.05)
[2016-05-31 14:51] LABS: BE (BASE EXCESS) -15.2 MEQ/L (0 +/- 2.5); CARBOXYHEMOGLOBIN 0.8 % (0-3); HCO3 (ACTUAL BICARBONATE) 14.1 MEQ/L (23-27); HEMOBLOGIN CONTENT 13.3 G/DL (12-16); INSTRUMENT SERIAL # 8083; METHEMOGLOBIN 0.5 % (0-3); O2 CONTENT 17.1 VOL% (18-24); PCO2 (CO2 TENSION) 47 MMHG (35-45); PO2 (O2 TENSION) 69 MMHG (79-93)
[2016-05-31 14:52] LABS: ALLENS TEST Pos; DEVICE HFNC; SAMPLE Arterial
[2016-05-31 15:53] LABS: ALLENS TEST Pos; BE (BASE EXCESS) -11.4 MEQ/L (0 +/- 2.5); CARBOXYHEMOGLOBIN 0.1 % (0-3); DEVICE NRB; HCO3 (ACTUAL BICARBONATE) 17.7 MEQ/L (23-27); HEMOBLOGIN CONTENT 13.4 G/DL (12-16); INSTRUMENT SERIAL # 35151; METHEMOGLOBIN 0.7 % (0-3); O2 CONTENT 17.9 VOL% (18-24); PCO2 (CO2 TENSION) 53 MMHG (35-45); PO2 (O2 TENSION) 84 MMHG (79-93); SAMPLE Arterial; pH 7.14 (7.37-7.43)
[2016-05-31 16:59] LABS: HEMATOCRIT 35.5 % (36.0-48.0); HEMOGLOBIN 12.3 g/dL (12.0-16.0); MEAN CORPUS HGB CONC 34.6 g/dL (32.0-36.0); MEAN CORPUSCULAR HEMOGLOB 28.6 pg (26.0-34.0); MEAN CORPUSCULAR VOLUME 82.6 fL (80-100); MEAN PLATELET VOLUME 11.2 fL (9.2-13.0); PLATELET COUNT 179 10/3/uL (150-400); RBC DISTRIBUTION WIDTH 15.4 % (12.0-16.0); WHITE BLOOD CELLS 21.4 10/3/uL (4.5-10.5)
[2016-05-31 17:00] LABS: MANUAL DIFF YES %
[2016-05-31 17:01] LABS: INTERNATIONAL NORMAL RATI 1.2 UNITS (-); PROTIME (NOT ORD) 14.8 SEC (12.0-14.5)
[2016-05-31 17:02] LABS: ALLENS TEST Pos; BE (BASE EXCESS) -13.1 MEQ/L (0 +/- 2.5); CARBOXYHEMOGLOBIN 0.3 % (0-3); HCO3 (ACTUAL BICARBONATE) 17.5 MEQ/L (23-27); HEMOBLOGIN CONTENT 13.2 G/DL (12-16); INSTRUMENT SERIAL # 35151; METHEMOGLOBIN 0.8 % (0-3); MODE CMV; PCO2 (CO2 TENSION) 61 MMHG (35-45); PO2 (O2 TENSION) 297 MMHG (79-93); SAMPLE Arterial; TIDAL VOLUME 450 ML; pH 7.07 (7.37-7.43)
[2016-05-31 17:02] LABS: PARTIAL THROMBO TIME 30.3 SEC (22.5-37.2)
[2016-05-31 17:40] LABS: BUN (BLOOD UREA NITROGEN) 55 MG/DL (6-23); CALCIUM, SERUM 7.1 MG/DL (8.5-10.4); CHLORIDE, SERUM 86 MMOL/L (96-112); CK-MB 115.5 NG/ML; CREATININE 5.08 MG/DL (0.55-1.02); DIRECT BILIRUBIN 0.2 MG/DL (0.0-0.4); GFR AFRICAN AMERICAN 10 ML/MIN (>=60); GFR NON AFRICAN AMERICAN 9 ML/MIN (>=60); GLUCOSE, SERUM 135 MG/DL (60-99); INDIRECT BILIRUBIN(NOT ORDER) 0.3 MG/DL (0.1-0.9); MYOGLOBIN, SERUM 13711 NG/ML (0-85); PHOSPHORUS, SERUM 7.4 MG/DL (2.5-4.5); POTASSIUM, SERUM 4.1 MMOL/L (3.5-5.3); SGOT(AST) 1053 U/L (5-40); SGPT(ALT) 363 U/L (5-65); SODIUM, SERUM 124 MMOL/L (135-148); TOTAL BILIRUBIN 0.5 MG/DL (0-1.2); TOTAL PROTEIN 6.4 G/DL (6.0-8.5)
[2016-05-31 17:41] LABS: A/G RATIO 0.5 (0.7-1.9); ALBUMIN 2.1 G/DL (3.5-5.0); ALKALINE PHOSPHATASE 92 U/L (45-117); CO2 (CARBON DIOXIDE) 20 MMOL/L (24-34); GLOBULIN 4.3 G/DL (2.5-4.1)
[2016-05-31 17:42] LABS: TROPONIN I 0.39 NG/ML (<0.05)
[2016-05-31 17:47] LABS: BAND NEUTROPHILS 43 %; LYMPHOCYTES 6 %; LYMPHOCYTES ABSOLUTE (CALC) 1.28 10/3/uL (0.67-4.30); MONOCYTES 2 %; MONOCYTES ABSOLUTE (CALC) 0.43 10/3/uL (0.21-1.20); NEUTROPHILS ABSOLUTE (CALC) 19.69 10/3/uL (2.02-8.40); SEGMENTED NEUTROPHIL (0) 49 %; TOTAL NUCLEATED CELLS 100
[2016-05-31 17:48] LABS: PLATELET ESTIMATE ADQ (ADEQUATE)
[2016-05-31 17:56] LABS: TOXIC GRANULATION 1+
[2016-05-31 18:17] LABS: CKMB INDEX (NOT ORD) 0.3; CPK 41663 U/L (0-200)
[2016-05-31 18:27] LABS: PROCALCITONIN > 200.00 ng/mL (<0.5)
[2016-05-31 20:07] LABS: HEMATOCRIT 34.3 % (36.0-48.0); MEAN CORPUSCULAR HEMOGLOB 28.8 pg (26.0-34.0); MEAN CORPUSCULAR VOLUME 82.5 fL (80-100); PLATELET COUNT 158 10/3/uL (150-400); RBC DISTRIBUTION WIDTH 15.5 % (12.0-16.0); RED CELL COUNT 4.16 10/6/uL (4.0-5.6); WHITE BLOOD CELLS 21.5 10/3/uL (4.5-10.5)
[2016-05-31 20:09] LABS: MANUAL DIFF YES %
[2016-05-31 20:13] LABS: INFLUENZA A SCREEN NEGATIVE (NEGATIVE); INFLUENZA B SCREEN POSITIVE (NEGATIVE)
[2016-05-31 20:27] LABS: BUN (BLOOD UREA NITROGEN) 49 MG/DL (6-23); CHLORIDE, SERUM 88 MMOL/L (96-112); CO2 (CARBON DIOXIDE) 23 MMOL/L (24-34); GFR AFRICAN AMERICAN 12 ML/MIN (>=60); GFR NON AFRICAN AMERICAN 11 ML/MIN (>=60); GLUCOSE, SERUM 185 MG/DL (60-99); PHOSPHORUS, SERUM 6.6 MG/DL (2.5-4.5); POTASSIUM, SERUM 3.6 MMOL/L (3.5-5.3); SODIUM, SERUM 128 MMOL/L (135-148)
[2016-05-31 20:29] LABS: BAND NEUTROPHILS 50 %; IMMATURE GRANS ABSOLUTE (CALC) 0.22 10/3/uL (0.0-0.11); LYMPHOCYTES 2 %; LYMPHOCYTES ABSOLUTE (CALC) 0.43 10/3/uL (0.67-4.30); METAMYELOCYTES 1 %; NEUTROPHILS ABSOLUTE (CALC) 20.86 10/3/uL (2.02-8.40); PLATELET ESTIMATE ADQ (ADEQUATE); SEGMENTED NEUTROPHIL (0) 47 %; TOTAL NUCLEATED CELLS 100
[2016-05-31 20:30] LABS: RBC MORPHOLOGY NORM (NORMAL)
[2016-05-31 21:16] LABS: WBC (NOT ORDERED) (RFLEX) 0 (0-5)
[2016-05-31 21:29] LABS: ASCORBIC ACID (UR NOT ORDER) NEG (NEG); BILIRUBIN, URINE NEGATIVE (NEG); KETONE, URINE NEGATIVE (NEG); LEUKOCYTE ESTERASE(NOT OR NEG (NEG)
[2016-05-31 23:15] LABS: CK-MB 86.2 NG/ML
[2016-05-31 23:16] LABS: TROPONIN I 0.56 NG/ML (<0.05)
[2016-06-01 02:02] LABS: HEMATOCRIT 34.5 % (36.0-48.0); HEMOGLOBIN 12.1 g/dL (12.0-16.0); MEAN CORPUS HGB CONC 35.1 g/dL (32.0-36.0); MEAN CORPUSCULAR HEMOGLOB 28.9 pg (26.0-34.0); MEAN CORPUSCULAR VOLUME 82.5 fL (80-100); MEAN PLATELET VOLUME 10.7 fL (9.2-13.0); PLATELET COUNT 137 10/3/uL (150-400); RBC DISTRIBUTION WIDTH 15.7 % (12.0-16.0); RED CELL COUNT 4.18 10/6/uL (4.0-5.6)
[2016-06-01 02:02] LABS: ALLENS TEST Pos; BE (BASE EXCESS) -8.7 MEQ/L (0 +/- 2.5); CARBOXYHEMOGLOBIN 0.2 % (0-3); HCO3 (ACTUAL BICARBONATE) 19.3 MEQ/L (23-27); HEMOBLOGIN CONTENT 12.9 G/DL (12-16); INSTRUMENT SERIAL # 35151; METHEMOGLOBIN 0.6 % (0-3); MODE CMV; O2 CONTENT 17.4 VOL% (18-24); PCO2 (CO2 TENSION) 50 MMHG (35-45); PO2 (O2 TENSION) 86 MMHG (79-93); SAMPLE Arterial; TIDAL VOLUME 450 ML; pH 7.21 (7.37-7.43)
[2016-06-01 02:07] LABS: WHITE BLOOD CELLS 25.7 10/3/uL (4.5-10.5)
[2016-06-01 02:09] LABS: MANUAL DIFF YES %
[2016-06-01 02:13] LABS: CKMB INDEX (NOT ORD) 0.2
[2016-06-01 02:16] LABS: CHLORIDE, SERUM 97 MMOL/L (96-112); CO2 (CARBON DIOXIDE) 21 MMOL/L (24-34); GLUCOSE, SERUM 157 MG/DL (60-99); SODIUM, SERUM 133 MMOL/L (135-148)
[2016-06-01 02:18] LABS: BUN (BLOOD UREA NITROGEN) 33 MG/DL (6-23); CALCIUM, SERUM 6.4 MG/DL (8.5-10.4); CREATININE 2.98 MG/DL (0.55-1.02); GFR AFRICAN AMERICAN 20 ML/MIN (>=60); GFR NON AFRICAN AMERICAN 17 ML/MIN (>=60); PHOSPHORUS, SERUM 4.3 MG/DL (2.5-4.5)
[2016-06-01 02:23] LABS: BAND NEUTROPHILS 67 %; IMMATURE GRANS ABSOLUTE (CALC) 0.51 10/3/uL (0.0-0.11); LYMPHOCYTES 3 %; LYMPHOCYTES ABSOLUTE (CALC) 0.77 10/3/uL (0.67-4.30); METAMYELOCYTES 2 %; NEUTROPHILS ABSOLUTE (CALC) 24.42 10/3/uL (2.02-8.40); SEGMENTED NEUTROPHIL (0) 28 %; TOTAL NUCLEATED CELLS 100
[2016-06-01 02:24] LABS: PLATELET ESTIMATE SLT DEC (ADEQUATE)
[2016-06-01 02:25] LABS: SCHISTOCYTES OCC (0-2/OIF); SPHEROCYTES OCC (0-2/OIF)
[2016-06-01 04:04] LABS: BE (BASE EXCESS) -4.7 MEQ/L (0 +/- 2.5); CARBOXYHEMOGLOBIN 0.3 % (0-3); HCO3 (ACTUAL BICARBONATE) 23.4 MEQ/L (23-27); HEMOBLOGIN CONTENT 12.8 G/DL (12-16); INSTRUMENT SERIAL # 35151; METHEMOGLOBIN 0.5 % (0-3); MODE CMV; OPERATOR ID 23712; PCO2 (CO2 TENSION) 57 MMHG (35-45); PO2 (O2 TENSION) 77 MMHG (79-93); SAMPLE Arterial; TIDAL VOLUME 450 ML; pH 7.23 (7.37-7.43)
[2016-06-01 04:05] LABS: ALLENS TEST Pos
[2016-06-01 04:42] LABS: HEMATOCRIT 33.1 % (36.0-48.0); HEMOGLOBIN 11.5 g/dL (12.0-16.0); MEAN CORPUS HGB CONC 34.7 g/dL (32.0-36.0); MEAN CORPUSCULAR HEMOGLOB 28.7 pg (26.0-34.0); MEAN CORPUSCULAR VOLUME 82.5 fL (80-100); MEAN PLATELET VOLUME 10.7 fL (9.2-13.0); PLATELET COUNT 129 10/3/uL (150-400); RBC DISTRIBUTION WIDTH 15.6 % (12.0-16.0); RED CELL COUNT 4.01 10/6/uL (4.0-5.6)
[2016-06-01 04:44] LABS: MANUAL DIFF YES %; WHITE BLOOD CELLS 25.3 10/3/uL (4.5-10.5)
[2016-06-01 05:10] LABS: A/G RATIO 0.5 (0.7-1.9); ALBUMIN 1.8 G/DL (3.5-5.0); BUN (BLOOD UREA NITROGEN) 30 MG/DL (6-23); CHLORIDE, SERUM 96 MMOL/L (96-112); CK-MB 71.3 NG/ML; CO2 (CARBON DIOXIDE) 24 MMOL/L (24-34); CREATININE 2.75 MG/DL (0.55-1.02); GFR AFRICAN AMERICAN 22 ML/MIN (>=60); GFR NON AFRICAN AMERICAN 19 ML/MIN (>=60); GLOBULIN 3.8 G/DL (2.5-4.1); GLUCOSE, SERUM 146 MG/DL (60-99); MYOGLOBIN, SERUM 2935 NG/ML (0-85); PHOSPHORUS, SERUM 4.1 MG/DL (2.5-4.5); SGPT(ALT) 359 U/L (5-65); SODIUM, SERUM 135 MMOL/L (135-148); TOTAL PROTEIN 5.6 G/DL (6.0-8.5)
[2016-06-01 05:12] LABS: ALKALINE PHOSPHATASE 192 U/L (45-117); CALCIUM, SERUM 8.2 MG/DL (8.5-10.4); DIRECT BILIRUBIN 0.7 MG/DL (0.0-0.4); INDIRECT BILIRUBIN(NOT ORDER) 0.6 MG/DL (0.1-0.9); TOTAL BILIRUBIN 1.3 MG/DL (0-1.2)
[2016-06-01 05:13] LABS: SGOT(AST) 971 U/L (5-40); TROPONIN I 0.52 NG/ML (<0.05)
[2016-06-01 05:16] LABS: BAND NEUTROPHILS 61 %; LYMPHOCYTES 1 %; LYMPHOCYTES ABSOLUTE (CALC) 0.25 10/3/uL (0.67-4.30); MONOCYTES 5 %; MONOCYTES ABSOLUTE (CALC) 1.27 10/3/uL (0.21-1.20); NEUTROPHILS ABSOLUTE (CALC) 23.78 10/3/uL (2.02-8.40); PLATELET ESTIMATE SLT DEC (ADEQUATE); SEGMENTED NEUTROPHIL (0) 33 %; TOTAL NUCLEATED CELLS 100; TOXIC GRANULATION SLT
[2016-06-01 05:17] LABS: VACUOLATED NEUTROPHILES RARE
[2016-06-01 05:26] LABS: PROCALCITONIN > 200.00 ng/mL (<0.5)
[2016-06-01 05:55] LABS: ALLENS TEST Pos; CARBOXYHEMOGLOBIN 0.1 % (0-3); HCO3 (ACTUAL BICARBONATE) 22.7 MEQ/L (23-27); HEMOBLOGIN CONTENT 12.8 G/DL (12-16); INSTRUMENT SERIAL # 35151; METHEMOGLOBIN 0.7 % (0-3); MODE CMV; PCO2 (CO2 TENSION) 54 MMHG (35-45); PO2 (O2 TENSION) 74 MMHG (79-93); SAMPLE Arterial; TIDAL VOLUME 450 ML; pH 7.24 (7.37-7.43)
[2016-06-01 07:37] LABS: CKMB INDEX (NOT ORD) 0.3; CPK 27397 U/L (0-200)
[2016-06-01 08:38] LABS: HEPATITIS B SURFACE ANTIGEN NON-REACTIVE (NON-REACT)
[2016-06-01 08:47] LABS: HEPATITIS C ANTIBODY NON-REACTIVE (NON-REACT)
[2016-06-01 08:48] LABS: HEPATITIS B CORE AB IGM NON-REACTIVE (NON-REAC)
[2016-06-01 08:49] LABS: HEP A ANTIBODY IGM NON-REACTIVE (NON-REACT)
[2016-06-01 09:18] LABS: BUN (BLOOD UREA NITROGEN) 24 MG/DL (6-23); CALCIUM, SERUM 7.1 MG/DL (8.5-10.4); CHLORIDE, SERUM 98 MMOL/L (96-112); CO2 (CARBON DIOXIDE) 24 MMOL/L (24-34); GFR AFRICAN AMERICAN 27 ML/MIN (>=60); GFR NON AFRICAN AMERICAN 23 ML/MIN (>=60); GLUCOSE, SERUM 142 MG/DL (60-99); SODIUM, SERUM 137 MMOL/L (135-148)
[2016-06-01 10:15] LABS: PHOSPHORUS, SERUM 2.9 MG/DL (2.5-4.5)
[2016-06-01 17:05] LABS: HEMATOCRIT 30.5 % (36.0-48.0); HEMOGLOBIN 11.1 g/dL (12.0-16.0); MEAN CORPUS HGB CONC 36.4 g/dL (32.0-36.0); MEAN CORPUSCULAR HEMOGLOB 30.6 pg (26.0-34.0); MEAN PLATELET VOLUME 11.4 fL (9.2-13.0); PLATELET COUNT 121 10/3/uL (150-400); RBC DISTRIBUTION WIDTH 15.9 % (12.0-16.0); RED CELL COUNT 3.63 10/6/uL (4.0-5.6)
[2016-06-01 17:07] LABS: MANUAL DIFF YES %; WHITE BLOOD CELLS 31.2 10/3/uL (4.5-10.5)
[2016-06-01 17:10] LABS: BUN (BLOOD UREA NITROGEN) 22 MG/DL (6-23); CALCIUM, SERUM 7.1 MG/DL (8.5-10.4); CHLORIDE, SERUM 100 MMOL/L (96-112); CO2 (CARBON DIOXIDE) 24 MMOL/L (24-34); CREATININE 2.02 MG/DL (0.55-1.02); GFR AFRICAN AMERICAN 31 ML/MIN (>=60); GFR NON AFRICAN AMERICAN 27 ML/MIN (>=60); GLUCOSE, SERUM 149 MG/DL (60-99); SODIUM, SERUM 136 MMOL/L (135-148)
[2016-06-01 17:23] LABS: BAND NEUTROPHILS 44 %; LYMPHOCYTES 2 %; LYMPHOCYTES ABSOLUTE (CALC) 0.62 10/3/uL (0.67-4.30); NEUTROPHILS ABSOLUTE (CALC) 30.58 10/3/uL (2.02-8.40); SEGMENTED NEUTROPHIL (0) 54 %; TOTAL NUCLEATED CELLS 100
[2016-06-01 17:24] LABS: ANISOCYTOSIS 1+ (5-10/OIF) (0-5/OIF); GIANT PLATELET FEW; TEARDROP SHAPED RBCS FEW (3-10/OIF); TOXIC GRANULATION 1+; VACUOLATED NEUTROPHILES OCC
[2016-06-01 23:26] LABS: HEMATOCRIT 29.9 % (36.0-48.0); HEMOGLOBIN 10.8 g/dL (12.0-16.0); MEAN CORPUS HGB CONC 36.1 g/dL (32.0-36.0); MEAN CORPUSCULAR HEMOGLOB 30.3 pg (26.0-34.0); MEAN CORPUSCULAR VOLUME 83.8 fL (80-100); MEAN PLATELET VOLUME 11.5 fL (9.2-13.0); NUCLEATED RED BLOOD CELLS 0.1 /100WBC (0-0); PLATELET COUNT 124 10/3/uL (150-400); RED CELL COUNT 3.57 10/6/uL (4.0-5.6)
[2016-06-01 23:28] LABS: MANUAL DIFF YES %
[2016-06-01 23:38] LABS: CALCIUM, SERUM 7.7 MG/DL (8.5-10.4); CHLORIDE, SERUM 100 MMOL/L (96-112); CO2 (CARBON DIOXIDE) 24 MMOL/L (24-34); CREATININE 1.66 MG/DL (0.55-1.02); GFR AFRICAN AMERICAN 40 ML/MIN (>=60); GFR NON AFRICAN AMERICAN 34 ML/MIN (>=60); SODIUM, SERUM 137 MMOL/L (135-148)
[2016-06-01 23:43] LABS: BUN (BLOOD UREA NITROGEN) 17 MG/DL (6-23); GLUCOSE, SERUM 181 MG/DL (60-99); PHOSPHORUS, SERUM 3.6 MG/DL (2.5-4.5); POTASSIUM, SERUM 3.8 MMOL/L (3.5-5.3)
[2016-06-01 23:54] LABS: BAND NEUTROPHILS 47 %; LYMPHOCYTES 6 %; LYMPHOCYTES ABSOLUTE (CALC) 2.28 10/3/uL (0.67-4.30); METAMYELOCYTES 3 %; MONOCYTES 1 %; MONOCYTES ABSOLUTE (CALC) 0.38 10/3/uL (0.21-1.20); MYELOCYTES 2 %; NEUTROPHILS ABSOLUTE (CALC) 33.44 10/3/uL (2.02-8.40); SEGMENTED NEUTROPHIL (0) 41 %; TOTAL NUCLEATED CELLS 100
[2016-06-01 23:55] LABS: PLATELET ESTIMATE SLT DEC (ADEQUATE); TEARDROP SHAPED RBCS FEW (3-10/OIF)
[2016-06-02 03:29] LABS: BE (BASE EXCESS) -5.4 MEQ/L (0 +/- 2.5); CARBOXYHEMOGLOBIN 0.3 % (0-3); HCO3 (ACTUAL BICARBONATE) 22.6 MEQ/L (23-27); INSTRUMENT SERIAL # 35151; PCO2 (CO2 TENSION) 56 MMHG (35-45); PO2 (O2 TENSION) 68 MMHG (79-93); pH 7.23 (7.37-7.43)
[2016-06-02 03:30] LABS: ALLENS TEST Pos; HEMOBLOGIN CONTENT 12.4 G/DL (12-16); METHEMOGLOBIN 0.6 % (0-3); MODE CMV; O2 CONTENT 15.9 VOL% (18-24); SAMPLE Arterial; TIDAL VOLUME 500 ML
[2016-06-02 05:54] LABS: HEMATOCRIT 27.3 % (36.0-48.0); HEMOGLOBIN 10.1 g/dL (12.0-16.0); MANUAL DIFF YES %; MEAN CORPUSCULAR VOLUME 83.7 fL (80-100); MEAN PLATELET VOLUME 11.9 fL (9.2-13.0); PLATELET COUNT 121 10/3/uL (150-400); RBC DISTRIBUTION WIDTH 16.4 % (12.0-16.0); RED CELL COUNT 3.26 10/6/uL (4.0-5.6); WHITE BLOOD CELLS 33.2 10/3/uL (4.5-10.5)
[2016-06-02 06:10] LABS: BAND NEUTROPHILS 50 %; LYMPHOCYTES 2 %; LYMPHOCYTES ABSOLUTE (CALC) 0.66 10/3/uL (0.67-4.30); NEUTROPHILS ABSOLUTE (CALC) 32.54 10/3/uL (2.02-8.40); PLATELET ESTIMATE DEC (ADEQUATE); SEGMENTED NEUTROPHIL (0) 48 %; TOTAL NUCLEATED CELLS 100
[2016-06-02 06:11] LABS: RBC MORPHOLOGY NORM (NORMAL)
[2016-06-02 06:24] LABS: CALCIUM, SERUM 7.9 MG/DL (8.5-10.4); CHLORIDE, SERUM 104 MMOL/L (96-112); CO2 (CARBON DIOXIDE) 20 MMOL/L (24-34); CREATININE 1.57 MG/DL (0.55-1.02); GFR AFRICAN AMERICAN 43 ML/MIN (>=60); GFR NON AFRICAN AMERICAN 37 ML/MIN (>=60); SODIUM, SERUM 137 MMOL/L (135-148)
[2016-06-02 06:26] LABS: BUN (BLOOD UREA NITROGEN) 17 MG/DL (6-23); CPK 8913 U/L (0-200); GLUCOSE, SERUM 160 MG/DL (60-99)
[2016-06-02 06:43] LABS: INTERNATIONAL NORMAL RATI 1.1 UNITS (-); PARTIAL THROMBO TIME 29.1 SEC (22.5-37.2); PROTIME (NOT ORD) 14.4 SEC (12.0-14.5)
[2016-06-02 06:52] LABS: ALBUMIN 2.1 G/DL (3.5-5.0); ALKALINE PHOSPHATASE 189 U/L (45-117); CK-MB 22.2 NG/ML; TOTAL BILIRUBIN 1.3 MG/DL (0-1.2)
[2016-06-02 06:55] LABS: A/G RATIO 0.6 (0.7-1.9); CKMB INDEX (NOT ORD) 0.2; GLOBULIN 3.3 G/DL (2.5-4.1); SGOT(AST) 491 U/L (5-40); SGPT(ALT) 268 U/L (5-65); TOTAL PROTEIN 5.4 G/DL (6.0-8.5)
[2016-06-02 07:41] LABS: PROCALCITONIN 155.68 ng/mL (<0.5)
[2016-06-02 11:30] LABS: HEMATOCRIT 26.5 % (36.0-48.0); MANUAL DIFF YES %; MEAN CORPUS HGB CONC 37.7 g/dL (32.0-36.0); MEAN CORPUSCULAR HEMOGLOB 31.7 pg (26.0-34.0); MEAN CORPUSCULAR VOLUME 84.1 fL (80-100); MEAN PLATELET VOLUME 12.1 fL (9.2-13.0); PLATELET COUNT 129 10/3/uL (150-400); RBC DISTRIBUTION WIDTH 16.7 % (12.0-16.0); RED CELL COUNT 3.15 10/6/uL (4.0-5.6); WHITE BLOOD CELLS 38.3 10/3/uL (4.5-10.5)
[2016-06-02 11:50] LABS: CALCIUM, SERUM 7.6 MG/DL (8.5-10.4); CHLORIDE, SERUM 102 MMOL/L (96-112); CO2 (CARBON DIOXIDE) 23 MMOL/L (24-34); CREATININE 1.43 MG/DL (0.55-1.02); GFR AFRICAN AMERICAN 48 ML/MIN (>=60); GFR NON AFRICAN AMERICAN 41 ML/MIN (>=60); SODIUM, SERUM 138 MMOL/L (135-148)
[2016-06-02 11:51] LABS: ANISOCYTOSIS 1+ (5-10/OIF) (0-5/OIF); BAND NEUTROPHILS 53 %; IMMATURE GRANS ABSOLUTE (CALC) 1.53 10/3/uL (0.0-0.11); LYMPHOCYTES 2 %; LYMPHOCYTES ABSOLUTE (CALC) 0.77 10/3/uL (0.67-4.30); MACROCYTES 1+ (5-10/OIF) (0-5/OIF); METAMYELOCYTES 4 %; PLATELET ESTIMATE SLT DEC (ADEQUATE); POLYCHROMASIA 1+ (2-5/OIF) (0-1/OIF); SEGMENTED NEUTROPHIL (0) 41 %; TOTAL NUCLEATED CELLS 100
[2016-06-02 11:52] LABS: BUN (BLOOD UREA NITROGEN) 15 MG/DL (6-23); GLUCOSE, SERUM 149 MG/DL (60-99); POTASSIUM, SERUM 4.4 MMOL/L (3.5-5.3)
[2016-06-02 18:31] LABS: HEMATOCRIT 27.6 % (36.0-48.0); HEMOGLOBIN 10.5 g/dL (12.0-16.0); MEAN CORPUSCULAR HEMOGLOB 31.6 pg (26.0-34.0); MEAN CORPUSCULAR VOLUME 83.1 fL (80-100); MEAN PLATELET VOLUME 11.4 fL (9.2-13.0); NUCLEATED RED BLOOD CELLS 0.2 /100WBC (0-0); PLATELET COUNT 157 10/3/uL (150-400); RBC DISTRIBUTION WIDTH 16.5 % (12.0-16.0); RED CELL COUNT 3.32 10/6/uL (4.0-5.6)
[2016-06-02 18:35] LABS: CALCIUM, SERUM 8.2 MG/DL (8.5-10.4); CHLORIDE, SERUM 98 MMOL/L (96-112); CO2 (CARBON DIOXIDE) 25 MMOL/L (24-34); CREATININE 1.52 MG/DL (0.55-1.02); GFR AFRICAN AMERICAN 44 ML/MIN (>=60); GFR NON AFRICAN AMERICAN 38 ML/MIN (>=60); PHOSPHORUS, SERUM 2.2 MG/DL (2.5-4.5); SODIUM, SERUM 135 MMOL/L (135-148)
[2016-06-02 18:36] LABS: BUN (BLOOD UREA NITROGEN) 16 MG/DL (6-23); GLUCOSE, SERUM 159 MG/DL (60-99)
[2016-06-02 18:49] LABS: WHITE BLOOD CELLS 42.3 10/3/uL (4.5-10.5)
[2016-06-02 18:50] LABS: MANUAL DIFF YES %
[2016-06-02 19:53] LABS: ANISOCYTOSIS 1+ (5-10/OIF) (0-5/OIF); BAND NEUTROPHILS 37 %; IMMATURE GRANS ABSOLUTE (CALC) 1.69 10/3/uL (0.0-0.11); LYMPHOCYTES 1 %; LYMPHOCYTES ABSOLUTE (CALC) 0.42 10/3/uL (0.67-4.30); METAMYELOCYTES 4 %; NEUTROPHILS ABSOLUTE (CALC) 40.19 10/3/uL (2.02-8.40); OVALOCYTES 1+ (3-10/OIF) (0-2/OIF); PLATELET ESTIMATE ADQ (ADEQUATE); SEGMENTED NEUTROPHIL (0) 58 %; TOTAL NUCLEATED CELLS 100
[2016-06-02 23:42] LABS: HEMATOCRIT 26.4 % (36.0-48.0); HEMOGLOBIN 9.9 g/dL (12.0-16.0); MEAN CORPUS HGB CONC 37.5 g/dL (32.0-36.0); MEAN CORPUSCULAR HEMOGLOB 30.7 pg (26.0-34.0); MEAN CORPUSCULAR VOLUME 81.7 fL (80-100); MEAN PLATELET VOLUME 12.5 fL (9.2-13.0); NUCLEATED RED BLOOD CELLS 0.2 /100WBC (0-0); PLATELET COUNT 188 10/3/uL (150-400); RBC DISTRIBUTION WIDTH 16.4 % (12.0-16.0); RED CELL COUNT 3.23 10/6/uL (4.0-5.6)
[2016-06-02 23:44] LABS: MANUAL DIFF YES %; WHITE BLOOD CELLS 43.2 10/3/uL (4.5-10.5)
[2016-06-03 00:21] LABS: BAND NEUTROPHILS 17 %; LYMPHOCYTES 5 %; LYMPHOCYTES ABSOLUTE (CALC) 2.16 10/3/uL (0.67-4.30); METAMYELOCYTES 3 %; MONOCYTES 2 %; MONOCYTES ABSOLUTE (CALC) 0.86 10/3/uL (0.21-1.20); NEUTROPHILS ABSOLUTE (CALC) 38.88 10/3/uL (2.02-8.40); PLATELET ESTIMATE ADQ (ADEQUATE); SEGMENTED NEUTROPHIL (0) 73 %; TOTAL NUCLEATED CELLS 100
[2016-06-03 00:22] LABS: TARGET CELLS FEW (3-10/OIF) (0-1/OIF)
[2016-06-03 02:48] LABS: BUN (BLOOD UREA NITROGEN) 16 MG/DL (6-23); CHLORIDE, SERUM 98 MMOL/L (96-112); CO2 (CARBON DIOXIDE) 26 MMOL/L (24-34); CREATININE 1.53 MG/DL (0.55-1.02); GFR AFRICAN AMERICAN 44 ML/MIN (>=60); GFR NON AFRICAN AMERICAN 38 ML/MIN (>=60); GLUCOSE, SERUM 167 MG/DL (60-99); PHOSPHORUS, SERUM 2.1 MG/DL (2.5-4.5); SODIUM, SERUM 138 MMOL/L (135-148)
[2016-06-03 02:52] LABS: CALCIUM, SERUM 9.2 MG/DL (8.5-10.4); POTASSIUM, SERUM 3.7 MMOL/L (3.5-5.3)
[2016-06-03 03:49] LABS: ALLENS TEST Pos; BE (BASE EXCESS) -0.9 MEQ/L (0 +/- 2.5); CARBOXYHEMOGLOBIN 0.3 % (0-3); HCO3 (ACTUAL BICARBONATE) 25.4 MEQ/L (23-27); HEMOBLOGIN CONTENT 9.8 G/DL (12-16); INSTRUMENT SERIAL # 35151; METHEMOGLOBIN 0.7 % (0-3); MODE CMV; O2 CONTENT 12.6 VOL% (18-24); PCO2 (CO2 TENSION) 50 MMHG (35-45); PO2 (O2 TENSION) 67 MMHG (79-93); SAMPLE Arterial; TIDAL VOLUME 500 ML; pH 7.32 (7.37-7.43)
[2016-06-03 06:28] LABS: PARTIAL THROMBO TIME 29.1 SEC (22.5-37.2); PROTIME (NOT ORD) 12.9 SEC (12.0-14.5)
[2016-06-03 06:37] LABS: HEMATOCRIT 26.6 % (36.0-48.0); HEMOGLOBIN 10.4 g/dL (12.0-16.0); MEAN CORPUSCULAR HEMOGLOB 32.6 pg (26.0-34.0); MEAN CORPUSCULAR VOLUME 83.4 fL (80-100); MEAN PLATELET VOLUME 11.4 fL (9.2-13.0); NUCLEATED RED BLOOD CELLS 0.3 /100WBC (0-0); PLATELET COUNT 149 10/3/uL (150-400); RBC DISTRIBUTION WIDTH 16.4 % (12.0-16.0); RED CELL COUNT 3.19 10/6/uL (4.0-5.6)
[2016-06-03 06:38] LABS: MANUAL DIFF YES %; WHITE BLOOD CELLS 40.6 10/3/uL (4.5-10.5)
[2016-06-03 06:47] LABS: BAND NEUTROPHILS 22 %; IMMATURE GRANS ABSOLUTE (CALC) 1.62 10/3/uL (0.0-0.11); LYMPHOCYTES 4 %; LYMPHOCYTES ABSOLUTE (CALC) 1.62 10/3/uL (0.67-4.30); METAMYELOCYTES 3 %; MONOCYTES 1 %; MONOCYTES ABSOLUTE (CALC) 0.41 10/3/uL (0.21-1.20); MYELOCYTES 1 %; NEUTROPHILS ABSOLUTE (CALC) 36.95 10/3/uL (2.02-8.40); PLATELET ESTIMATE ADQ (ADEQUATE); SEGMENTED NEUTROPHIL (0) 69 %; TOTAL NUCLEATED CELLS 100
[2016-06-03 06:49] LABS: GIANT PLATELET OCC; TOXIC GRANULATION SLT; VACUOLATED NEUTROPHILES FEW
[2016-06-03 06:54] LABS: ALBUMIN 2.4 G/DL (3.5-5.0); ALKALINE PHOSPHATASE 189 U/L (45-117); CHLORIDE, SERUM 95 MMOL/L (96-112); CK-MB 7.7 NG/ML; CO2 (CARBON DIOXIDE) 26 MMOL/L (24-34); CREATININE 1.42 MG/DL (0.55-1.02); GFR AFRICAN AMERICAN 48 ML/MIN (>=60); GFR NON AFRICAN AMERICAN 41 ML/MIN (>=60); SODIUM, SERUM 134 MMOL/L (135-148); TOTAL BILIRUBIN 1.5 MG/DL (0-1.2)
[2016-06-03 06:59] LABS: BUN (BLOOD UREA NITROGEN) 14 MG/DL (6-23); CALCIUM, SERUM 8.1 MG/DL (8.5-10.4); GLUCOSE, SERUM 194 MG/DL (60-99); POTASSIUM, SERUM 3.8 MMOL/L (3.5-5.3)
[2016-06-03 07:00] LABS: CKMB INDEX (NOT ORD) 0.3; CPK 3024 U/L (0-200); DIRECT BILIRUBIN 0.4 MG/DL (0.0-0.4); INDIRECT BILIRUBIN(NOT ORDER) 1.1 MG/DL (0.1-0.9); PHOSPHORUS, SERUM 2.9 MG/DL (2.5-4.5); TOTAL PROTEIN 5.9 G/DL (6.0-8.5)
[2016-06-03 07:55] LABS: SGOT(AST) 417 U/L (5-40); SGPT(ALT) 274 U/L (5-65)
[2016-06-03 12:19] LABS: HEMATOCRIT 27.6 % (36.0-48.0); HEMOGLOBIN 10.6 g/dL (12.0-16.0); MEAN CORPUS HGB CONC 38.4 g/dL (32.0-36.0); MEAN CORPUSCULAR VOLUME 83.4 fL (80-100); MEAN PLATELET VOLUME 12.2 fL (9.2-13.0); NUCLEATED RED BLOOD CELLS 0.3 /100WBC (0-0); PLATELET COUNT 155 10/3/uL (150-400); RBC DISTRIBUTION WIDTH 16.5 % (12.0-16.0); RED CELL COUNT 3.31 10/6/uL (4.0-5.6)
[2016-06-03 12:20] LABS: MANUAL DIFF YES %; WHITE BLOOD CELLS 42.4 10/3/uL (4.5-10.5)
[2016-06-03 12:46] LABS: CHLORIDE, SERUM 92 MMOL/L (96-112); CO2 (CARBON DIOXIDE) 27 MMOL/L (24-34); CREATININE 1.35 MG/DL (0.55-1.02); GFR AFRICAN AMERICAN 51 ML/MIN (>=60); GFR NON AFRICAN AMERICAN 44 ML/MIN (>=60); SODIUM, SERUM 132 MMOL/L (135-148)
[2016-06-03 12:49] LABS: GLUCOSE, SERUM 259 MG/DL (60-99)
[2016-06-03 12:58] LABS: BUN (BLOOD UREA NITROGEN) 13 MG/DL (6-23)
[2016-06-03 13:13] LABS: BAND NEUTROPHILS 15 %; EOSINOPHILS 1 %; EOSINOPHILS ABSOLUTE (CALC) 0.42 10/3/uL (0.0-0.53); IMMATURE GRANS ABSOLUTE (CALC) 0.85 10/3/uL (0.0-0.11); LYMPHOCYTES 8 %; LYMPHOCYTES ABSOLUTE (CALC) 3.39 10/3/uL (0.67-4.30); METAMYELOCYTES 2 %; MONOCYTES 2 %; MONOCYTES ABSOLUTE (CALC) 0.85 10/3/uL (0.21-1.20); NEUTROPHILS ABSOLUTE (CALC) 36.89 10/3/uL (2.02-8.40); PLATELET ESTIMATE ADQ (ADEQUATE); SEGMENTED NEUTROPHIL (0) 72 %; TOTAL NUCLEATED CELLS 100
[2016-06-03 13:15] LABS: ROULEAUX FORMATION 3+; VACUOLATED NEUTROPHILES OCC
[2016-06-03 13:40] LABS: CALCIUM, SERUM 8.4 MG/DL (8.5-10.4)
[2016-06-03 16:25] LABS: HEMATOCRIT 27.5 % (36.0-48.0); HEMOGLOBIN 10.3 g/dL (12.0-16.0); MEAN CORPUS HGB CONC 37.5 g/dL (32.0-36.0); MEAN CORPUSCULAR VOLUME 82.8 fL (80-100); MEAN PLATELET VOLUME 11.5 fL (9.2-13.0); NUCLEATED RED BLOOD CELLS 0.4 /100WBC (0-0); PLATELET COUNT 158 10/3/uL (150-400); RBC DISTRIBUTION WIDTH 16.4 % (12.0-16.0); RED CELL COUNT 3.32 10/6/uL (4.0-5.6)
[2016-06-03 16:30] LABS: MANUAL DIFF YES %; WHITE BLOOD CELLS 42.1 10/3/uL (4.5-10.5)
[2016-06-03 16:33] LABS: CALCIUM, SERUM 7.8 MG/DL (8.5-10.4); CHLORIDE, SERUM 92 MMOL/L (96-112); CO2 (CARBON DIOXIDE) 30 MMOL/L (24-34); CREATININE 1.26 MG/DL (0.55-1.02); GFR AFRICAN AMERICAN 56 ML/MIN (>=60); GFR NON AFRICAN AMERICAN 48 ML/MIN (>=60); PHOSPHORUS, SERUM 2.1 MG/DL (2.5-4.5); SODIUM, SERUM 132 MMOL/L (135-148)
[2016-06-03 16:38] LABS: GLUCOSE, SERUM 232 MG/DL (60-99)
[2016-06-03 16:46] LABS: BUN (BLOOD UREA NITROGEN) 12 MG/DL (6-23)
[2016-06-03 16:53] LABS: ANISOCYTOSIS 1+ (5-10/OIF) (0-5/OIF); BAND NEUTROPHILS 24 %; IMMATURE GRANS ABSOLUTE (CALC) 0.84 10/3/uL (0.0-0.11); LYMPHOCYTES 2 %; LYMPHOCYTES ABSOLUTE (CALC) 0.84 10/3/uL (0.67-4.30); METAMYELOCYTES 2 %; NEUTROPHILS ABSOLUTE (CALC) 40.42 10/3/uL (2.02-8.40); PLATELET ESTIMATE ADQ (ADEQUATE); SEGMENTED NEUTROPHIL (0) 72 %; TOTAL NUCLEATED CELLS 100; VACUOLATED NEUTROPHILES 2+
[2016-06-03 23:53] LABS: CHLORIDE, SERUM 90 MMOL/L (96-112); CO2 (CARBON DIOXIDE) 30 MMOL/L (24-34); CREATININE 1.29 MG/DL (0.55-1.02); GFR AFRICAN AMERICAN 54 ML/MIN (>=60); GFR NON AFRICAN AMERICAN 47 ML/MIN (>=60); SODIUM, SERUM 132 MMOL/L (135-148)
[2016-06-03 23:54] LABS: POTASSIUM, SERUM 4.2 MMOL/L (3.5-5.3)
[2016-06-03 23:55] LABS: PHOSPHORUS, SERUM 2.5 MG/DL (2.5-4.5)
[2016-06-03 23:56] LABS: GLUCOSE, SERUM 210 MG/DL (60-99)
[2016-06-04 00:09] LABS: HEMOGLOBIN 10.4 g/dL (12.0-16.0); MEAN CORPUSCULAR HEMOGLOB 32.3 pg (26.0-34.0); MEAN CORPUSCULAR VOLUME 82.9 fL (80-100); MEAN PLATELET VOLUME 11.9 fL (9.2-13.0); NUCLEATED RED BLOOD CELLS 0.4 /100WBC (0-0); PLATELET COUNT 179 10/3/uL (150-400); RBC DISTRIBUTION WIDTH 16.1 % (12.0-16.0); RED CELL COUNT 3.22 10/6/uL (4.0-5.6)
[2016-06-04 00:12] LABS: WHITE BLOOD CELLS 46.6 10/3/uL (4.5-10.5)
[2016-06-04 00:13] LABS: MANUAL DIFF YES %; MEAN CORPUS HGB CONC 34.7 g/dL (32.0-36.0)
[2016-06-04 00:27] LABS: BAND NEUTROPHILS 28 %; EOSINOPHILS 1 %; EOSINOPHILS ABSOLUTE (CALC) 0.47 10/3/uL (0.0-0.53); IMMATURE GRANS ABSOLUTE (CALC) 0.47 10/3/uL (0.0-0.11); LYMPHOCYTES 3 %; METAMYELOCYTES 1 %; NEUTROPHILS ABSOLUTE (CALC) 44.27 10/3/uL (2.02-8.40); PLATELET ESTIMATE ADQ (ADEQUATE); SEGMENTED NEUTROPHIL (0) 67 %; TOTAL NUCLEATED CELLS 100
[2016-06-04 00:29] LABS: RBC MORPHOLOGY NORM (NORMAL)
[2016-06-04 00:43] LABS: BUN (BLOOD UREA NITROGEN) 14 MG/DL (6-23)
[2016-06-04 00:46] LABS: CALCIUM, SERUM 8.9 MG/DL (8.5-10.4)
[2016-06-04 05:36] LABS: HEMOGLOBIN 10.1 g/dL (12.0-16.0); MEAN CORPUSCULAR HEMOGLOB 31.8 pg (26.0-34.0); MEAN CORPUSCULAR VOLUME 83.6 fL (80-100); MEAN PLATELET VOLUME 11.7 fL (9.2-13.0); NUCLEATED RED BLOOD CELLS 0.3 /100WBC (0-0); PLATELET COUNT 163 10/3/uL (150-400); RBC DISTRIBUTION WIDTH 16.4 % (12.0-16.0); RED CELL COUNT 3.18 10/6/uL (4.0-5.6)
[2016-06-04 05:38] LABS: HEMATOCRIT 26.6 % (36.0-48.0); MANUAL DIFF YES %; WHITE BLOOD CELLS 43.3 10/3/uL (4.5-10.5)
[2016-06-04 05:39] LABS: BE (BASE EXCESS) -0.4 MEQ/L (0 +/- 2.5); CARBOXYHEMOGLOBIN 0.3 % (0-3); HEMOBLOGIN CONTENT 10.3 G/DL (12-16); INSTRUMENT SERIAL # 35151; METHEMOGLOBIN 0.9 % (0-3); PCO2 (CO2 TENSION) 58 MMHG (35-45); PO2 (O2 TENSION) 93 MMHG (79-93); pH 7.28 (7.37-7.43)
[2016-06-04 05:40] LABS: ALLENS TEST Pos; MODE CMV; O2 CONTENT 13.9 VOL% (18-24); OPERATOR ID 13861; SAMPLE Arterial; TIDAL VOLUME 500 ML
[2016-06-04 07:02] LABS: BAND NEUTROPHILS 12 %; LYMPHOCYTES 5 %; LYMPHOCYTES ABSOLUTE (CALC) 2.17 10/3/uL (0.67-4.30); MONOCYTES 1 %; MONOCYTES ABSOLUTE (CALC) 0.43 10/3/uL (0.21-1.20); RBC MORPHOLOGY NORM (NORMAL); SEGMENTED NEUTROPHIL (0) 82 %; TOTAL NUCLEATED CELLS 100
[2016-06-04 07:03] LABS: PLATELET ESTIMATE ADQ (ADEQUATE)
[2016-06-04 07:40] LABS: BUN (BLOOD UREA NITROGEN) 15 MG/DL (6-23); CHLORIDE, SERUM 93 MMOL/L (96-112); CREATININE 1.28 MG/DL (0.55-1.02); GFR AFRICAN AMERICAN 54 ML/MIN (>=60); GFR NON AFRICAN AMERICAN 47 ML/MIN (>=60); PHOSPHORUS, SERUM 2.8 MG/DL (2.5-4.5); SODIUM, SERUM 135 MMOL/L (135-148)
[2016-06-04 07:46] LABS: CO2 (CARBON DIOXIDE) 21 MMOL/L (24-34); GLUCOSE, SERUM 161 MG/DL (60-99); POTASSIUM, SERUM 4.4 MMOL/L (3.5-5.3)
[2016-06-04 07:48] LABS: CK-MB 2.6 NG/ML; CPK 1014 U/L (0-200)
[2016-06-04 08:00] LABS: ALBUMIN 2.2 G/DL (3.5-5.0); ALKALINE PHOSPHATASE 194 U/L (45-117); TOTAL PROTEIN 6.1 G/DL (6.0-8.5)
[2016-06-04 08:01] LABS: DIRECT BILIRUBIN 0.3 MG/DL (0.0-0.4); INDIRECT BILIRUBIN(NOT ORDER) 0.6 MG/DL (0.1-0.9); TOTAL BILIRUBIN 0.9 MG/DL (0-1.2)
[2016-06-04 08:02] LABS: SGOT(AST) 208 U/L (5-40); SGPT(ALT) 197 U/L (5-65)
[2016-06-04 11:43] LABS: CALCIUM, SERUM 8.3 MG/DL (8.5-10.4); CHLORIDE, SERUM 93 MMOL/L (96-112); CREATININE 1.23 MG/DL (0.55-1.02); GFR AFRICAN AMERICAN 57 ML/MIN (>=60); GFR NON AFRICAN AMERICAN 49 ML/MIN (>=60); SODIUM, SERUM 133 MMOL/L (135-148)
[2016-06-04 11:44] LABS: CO2 (CARBON DIOXIDE) 29 MMOL/L (24-34)
[2016-06-04 11:45] LABS: GLUCOSE, SERUM 200 MG/DL (60-99); POTASSIUM, SERUM 3.8 MMOL/L (3.5-5.3)
[2016-06-04 11:49] LABS: BUN (BLOOD UREA NITROGEN) 15 MG/DL (6-23)
[2016-06-04 12:31] LABS: MEAN CORPUSCULAR VOLUME 84.3 fL (80-100); MEAN PLATELET VOLUME 12.4 fL (9.2-13.0); NUCLEATED RED BLOOD CELLS 0.4 /100WBC (0-0); PLATELET COUNT 170 10/3/uL (150-400); RBC DISTRIBUTION WIDTH 16.6 % (12.0-16.0); RED CELL COUNT 3.32 10/6/uL (4.0-5.6); WHITE BLOOD CELLS 44.9 10/3/uL (4.5-10.5)
[2016-06-04 12:32] LABS: HEMOGLOBIN 9.9 g/dL (12.0-16.0); MEAN CORPUS HGB CONC 35.4 g/dL (32.0-36.0); MEAN CORPUSCULAR HEMOGLOB 29.8 pg (26.0-34.0)
[2016-06-04 12:33] LABS: MANUAL DIFF YES %
[2016-06-04 12:52] LABS: BAND NEUTROPHILS 17 %; EOSINOPHILS 2 %; IMMATURE GRANS ABSOLUTE (CALC) 5.84 10/3/uL (0.0-0.11); LYMPHOCYTES 3 %; LYMPHOCYTES ABSOLUTE (CALC) 1.35 10/3/uL (0.67-4.30); METAMYELOCYTES 9 %; MONOCYTES 1 %; MONOCYTES ABSOLUTE (CALC) 0.45 10/3/uL (0.21-1.20); MYELOCYTES 4 %; NEUTROPHILS ABSOLUTE (CALC) 36.37 10/3/uL (2.02-8.40); SEGMENTED NEUTROPHIL (0) 64 %; TOTAL NUCLEATED CELLS 100
[2016-06-04 12:53] LABS: PLATELET ESTIMATE ADQ (ADEQUATE)
[2016-06-04 12:54] LABS: GIANT PLATELET OCC; TOXIC GRANULATION 1+
[2016-06-04 12:55] LABS: POLYCHROMASIA 1+ (2-5/OIF) (0-1/OIF); VACUOLATED NEUTROPHILES OCC
[2016-06-04 17:46] LABS: CALCIUM, SERUM 9.5 MG/DL (8.5-10.4); CHLORIDE, SERUM 91 MMOL/L (96-112); CO2 (CARBON DIOXIDE) 28 MMOL/L (24-34); CREATININE 1.29 MG/DL (0.55-1.02); GFR AFRICAN AMERICAN 54 ML/MIN (>=60); GFR NON AFRICAN AMERICAN 47 ML/MIN (>=60); GLUCOSE, SERUM 195 MG/DL (60-99); PHOSPHORUS, SERUM 2.7 MG/DL (2.5-4.5); SODIUM, SERUM 132 MMOL/L (135-148)
[2016-06-04 17:47] LABS: POTASSIUM, SERUM 4.5 MMOL/L (3.5-5.3)
[2016-06-04 17:54] LABS: BUN (BLOOD UREA NITROGEN) 18 MG/DL (6-23)
[2016-06-04 17:58] LABS: HEMATOCRIT 27.9 % (36.0-48.0); HEMOGLOBIN 10.5 g/dL (12.0-16.0); MEAN CORPUSCULAR HEMOGLOB 30.9 pg (26.0-34.0); MEAN CORPUSCULAR VOLUME 82.1 fL (80-100); MEAN PLATELET VOLUME 12.6 fL (9.2-13.0); NUCLEATED RED BLOOD CELLS 0.2 /100WBC (0-0); PLATELET COUNT 133 10/3/uL (150-400); RBC DISTRIBUTION WIDTH 16.6 % (12.0-16.0)
[2016-06-04 17:59] LABS: MANUAL DIFF YES %; MEAN CORPUS HGB CONC 37.6 g/dL (32.0-36.0); WHITE BLOOD CELLS 47.1 10/3/uL (4.5-10.5)
[2016-06-04 18:06] LABS: ANISOCYTOSIS 1+ (5-10/OIF) (0-5/OIF); BAND NEUTROPHILS 17 %; IMMATURE GRANS ABSOLUTE (CALC) 5.18 10/3/uL (0.0-0.11); LYMPHOCYTES 3 %; LYMPHOCYTES ABSOLUTE (CALC) 1.41 10/3/uL (0.67-4.30); METAMYELOCYTES 7 %; MONOCYTES 2 %; MONOCYTES ABSOLUTE (CALC) 0.94 10/3/uL (0.21-1.20); MYELOCYTES 4 %; NEUTROPHILS ABSOLUTE (CALC) 39.56 10/3/uL (2.02-8.40); SEGMENTED NEUTROPHIL (0) 67 %; TOTAL NUCLEATED CELLS 100; TOXIC GRANULATION 1+
[2016-06-04 18:07] LABS: PLATELET ESTIMATE SLT DEC (ADEQUATE); POIKILOCYTOSIS 1+ (5-10/OIF) (0-5/OIF)
[2016-06-05 00:10] LABS: HEMATOCRIT 27.1 % (36.0-48.0); HEMOGLOBIN 10.2 g/dL (12.0-16.0); MEAN CORPUS HGB CONC 37.6 g/dL (32.0-36.0); MEAN CORPUSCULAR HEMOGLOB 31.3 pg (26.0-34.0); MEAN CORPUSCULAR VOLUME 83.1 fL (80-100); NUCLEATED RED BLOOD CELLS 0.2 /100WBC (0-0); PLATELET COUNT 153 10/3/uL (150-400); RBC DISTRIBUTION WIDTH 16.7 % (12.0-16.0); RED CELL COUNT 3.26 10/6/uL (4.0-5.6)
[2016-06-05 00:13] LABS: MANUAL DIFF YES %; WHITE BLOOD CELLS 46.3 10/3/uL (4.5-10.5)
[2016-06-05 00:16] LABS: CALCIUM, SERUM 9.3 MG/DL (8.5-10.4); CHLORIDE, SERUM 91 MMOL/L (96-112); CO2 (CARBON DIOXIDE) 28 MMOL/L (24-34); CREATININE 1.24 MG/DL (0.55-1.02); GFR AFRICAN AMERICAN 57 ML/MIN (>=60); GFR NON AFRICAN AMERICAN 49 ML/MIN (>=60); SODIUM, SERUM 133 MMOL/L (135-148)
[2016-06-05 00:19] LABS: BAND NEUTROPHILS 11 %; EOSINOPHILS 1 %; EOSINOPHILS ABSOLUTE (CALC) 0.46 10/3/uL (0.0-0.53); LYMPHOCYTES 3 %; LYMPHOCYTES ABSOLUTE (CALC) 1.39 10/3/uL (0.67-4.30); METAMYELOCYTES 3 %; MONOCYTES 2 %; MONOCYTES ABSOLUTE (CALC) 0.93 10/3/uL (0.21-1.20); MYELOCYTES 5 %; NEUTROPHILS ABSOLUTE (CALC) 39.82 10/3/uL (2.02-8.40); SEGMENTED NEUTROPHIL (0) 75 %; TOTAL NUCLEATED CELLS 100
[2016-06-05 00:21] LABS: GLUCOSE, SERUM 202 MG/DL (60-99); POTASSIUM, SERUM 4.5 MMOL/L (3.5-5.3); RBC MORPHOLOGY ABN (NORMAL)
[2016-06-05 01:48] LABS: BUN (BLOOD UREA NITROGEN) 20 MG/DL (6-23)
[2016-06-05 03:38] LABS: BE (BASE EXCESS) 0.3 MEQ/L (0 +/- 2.5); CARBOXYHEMOGLOBIN 0.1 % (0-3); HCO3 (ACTUAL BICARBONATE) 27.2 MEQ/L (23-27); HEMOBLOGIN CONTENT 11.3 G/DL (12-16); INSTRUMENT SERIAL # 35151; METHEMOGLOBIN 0.7 % (0-3); O2 CONTENT 14.5 VOL% (18-24); PCO2 (CO2 TENSION) 55 MMHG (35-45); PO2 (O2 TENSION) 66 MMHG (79-93); pH 7.31 (7.37-7.43)
[2016-06-05 03:39] LABS: ALLENS TEST Pos; MODE CMV; OPERATOR ID 23712; SAMPLE Arterial; TIDAL VOLUME 500 ML
[2016-06-05 05:56] LABS: ALBUMIN 2.1 G/DL (3.5-5.0); ALKALINE PHOSPHATASE 204 U/L (45-117); CALCIUM, SERUM 9.8 MG/DL (8.5-10.4); CHLORIDE, SERUM 92 MMOL/L (96-112); CO2 (CARBON DIOXIDE) 26 MMOL/L (24-34); CREATININE 1.35 MG/DL (0.55-1.02); GFR AFRICAN AMERICAN 51 ML/MIN (>=60); GFR NON AFRICAN AMERICAN 44 ML/MIN (>=60); PHOSPHORUS, SERUM 2.7 MG/DL (2.5-4.5); SODIUM, SERUM 132 MMOL/L (135-148); TOTAL BILIRUBIN 1.1 MG/DL (0-1.2)
[2016-06-05 06:02] LABS: A/G RATIO 0.5 (0.7-1.9); BUN (BLOOD UREA NITROGEN) 21 MG/DL (6-23); DIRECT BILIRUBIN 0.3 MG/DL (0.0-0.4); GLOBULIN 4.3 G/DL (2.5-4.1); GLUCOSE, SERUM 173 MG/DL (60-99); INDIRECT BILIRUBIN(NOT ORDER) 0.8 MG/DL (0.1-0.9); POTASSIUM, SERUM 4.4 MMOL/L (3.5-5.3); TOTAL PROTEIN 6.4 G/DL (6.0-8.5)
[2016-06-05 06:16] LABS: SGOT(AST) 137 U/L (5-40); SGPT(ALT) 164 U/L (5-65)
[2016-06-05 06:38] LABS: MEAN CORPUSCULAR VOLUME 83.3 fL (80-100); MEAN PLATELET VOLUME 12.2 fL (9.2-13.0); NUCLEATED RED BLOOD CELLS 0.4 /100WBC (0-0); PLATELET COUNT 167 10/3/uL (150-400); RBC DISTRIBUTION WIDTH 16.9 % (12.0-16.0); RED CELL COUNT 3.36 10/6/uL (4.0-5.6)
[2016-06-05 06:45] LABS: MANUAL DIFF YES %
[2016-06-05 06:48] LABS: PROCALCITONIN 26.67 ng/mL (<0.5)
[2016-06-05 07:00] LABS: HEMOGLOBIN 9.7 g/dL (12.0-16.0); MEAN CORPUS HGB CONC 34.5 g/dL (32.0-36.0); MEAN CORPUSCULAR HEMOGLOB 28.8 pg (26.0-34.0)
[2016-06-05 07:19] LABS: BAND NEUTROPHILS 40 %; EOSINOPHILS 4 %; EOSINOPHILS ABSOLUTE (CALC) 1.88 10/3/uL (0.0-0.53); IMMATURE GRANS ABSOLUTE (CALC) 6.58 10/3/uL (0.0-0.11); LYMPHOCYTES 7 %; LYMPHOCYTES ABSOLUTE (CALC) 3.29 10/3/uL (0.67-4.30); METAMYELOCYTES 10 %; MYELOCYTES 4 %; NEUTROPHILS ABSOLUTE (CALC) 35.25 10/3/uL (2.02-8.40); SEGMENTED NEUTROPHIL (0) 35 %; TOTAL NUCLEATED CELLS 100
[2016-06-05 07:20] LABS: ANISOCYTOSIS 1+ (5-10/OIF) (0-5/OIF); PLATELET ESTIMATE ADQ (ADEQUATE); TOXIC GRANULATION 1+; VACUOLATED NEUTROPHILES OCC
[2016-06-05 07:21] LABS: GIANT PLATELET OCC
[2016-06-05 07:25] LABS: ROULEAUX FORMATION 1+
[2016-06-05 08:06] LABS: PATH REVIEW YES
[2016-06-05 12:04] LABS: CALCIUM, SERUM 9.9 MG/DL (8.5-10.4); CHLORIDE, SERUM 91 MMOL/L (96-112); CO2 (CARBON DIOXIDE) 25 MMOL/L (24-34); CREATININE 1.41 MG/DL (0.55-1.02); GFR AFRICAN AMERICAN 48 ML/MIN (>=60); GFR NON AFRICAN AMERICAN 42 ML/MIN (>=60); SODIUM, SERUM 131 MMOL/L (135-148)
[2016-06-05 12:17] LABS: GLUCOSE, SERUM 202 MG/DL (60-99); POTASSIUM, SERUM 4.7 MMOL/L (3.5-5.3)
[2016-06-05 12:23] LABS: BUN (BLOOD UREA NITROGEN) 24 MG/DL (6-23)
[2016-06-05 12:47] LABS: HEMATOCRIT 28.3 % (36.0-48.0); MEAN CORPUSCULAR VOLUME 82.5 fL (80-100); PLATELET COUNT 135 10/3/uL (150-400); RED CELL COUNT 3.43 10/6/uL (4.0-5.6)
[2016-06-05 13:05] LABS: WHITE BLOOD CELLS 50.2 10/3/uL (4.5-10.5)
[2016-06-05 13:06] LABS: MEAN PLATELET VOLUME 12.2 fL (9.2-13.0)
[2016-06-05 13:07] LABS: HEMOGLOBIN 9.7 g/dL (12.0-16.0); MANUAL DIFF YES %; MEAN CORPUS HGB CONC 34.3 g/dL (32.0-36.0); MEAN CORPUSCULAR HEMOGLOB 28.3 pg (26.0-34.0)
[2016-06-05 13:08] LABS: NUCLEATED RED BLOOD CELLS 0.4 /100WBC (0-0)
[2016-06-05 13:13] LABS: ANISOCYTOSIS 1+ (5-10/OIF) (0-5/OIF); BAND NEUTROPHILS 41 %; IMMATURE GRANS ABSOLUTE (CALC) 8.53 10/3/uL (0.0-0.11); LYMPHOCYTES 5 %; LYMPHOCYTES ABSOLUTE (CALC) 2.51 10/3/uL (0.67-4.30); METAMYELOCYTES 12 %; MONOCYTES 2 %; MYELOCYTES 5 %; NEUTROPHILS ABSOLUTE (CALC) 38.15 10/3/uL (2.02-8.40); PLATELET ESTIMATE SLT DEC (ADEQUATE); SEGMENTED NEUTROPHIL (0) 35 %; TOTAL NUCLEATED CELLS 100
[2016-06-05 13:14] LABS: GIANT PLATELET RARE; TOXIC GRANULATION 1+
[2016-06-05 13:15] LABS: VACUOLATED NEUTROPHILES FEW
[2016-06-05 17:56] LABS: CHLORIDE, SERUM 89 MMOL/L (96-112); CO2 (CARBON DIOXIDE) 26 MMOL/L (24-34); CREATININE 1.34 MG/DL (0.55-1.02); GFR AFRICAN AMERICAN 52 ML/MIN (>=60); GFR NON AFRICAN AMERICAN 44 ML/MIN (>=60); SODIUM, SERUM 130 MMOL/L (135-148)
[2016-06-05 17:57] LABS: BUN (BLOOD UREA NITROGEN) 26 MG/DL (6-23); CALCIUM, SERUM 7.7 MG/DL (8.5-10.4); GLUCOSE, SERUM 290 MG/DL (60-99); PHOSPHORUS, SERUM 3.6 MG/DL (2.5-4.5)
[2016-06-05 18:27] LABS: HEMATOCRIT 28.1 % (36.0-48.0); HEMOGLOBIN 10.5 g/dL (12.0-16.0); MEAN CORPUSCULAR HEMOGLOB 31.1 pg (26.0-34.0); MEAN CORPUSCULAR VOLUME 83.1 fL (80-100); MEAN PLATELET VOLUME 11.7 fL (9.2-13.0); NUCLEATED RED BLOOD CELLS 0.4 /100WBC (0-0); PLATELET COUNT 123 10/3/uL (150-400); RED CELL COUNT 3.38 10/6/uL (4.0-5.6)
[2016-06-05 18:29] LABS: WHITE BLOOD CELLS 55.3 10/3/uL (4.5-10.5)
[2016-06-05 18:30] LABS: MEAN CORPUS HGB CONC 37.4 g/dL (32.0-36.0)
[2016-06-05 18:31] LABS: MANUAL DIFF YES %
[2016-06-05 18:37] LABS: ANISOCYTOSIS 1+ (5-10/OIF) (0-5/OIF); BAND NEUTROPHILS 28 %; BASOPHILS 1 %; BASOPHILS ABSOLUTE (CALC) 0.55 10/3/uL (0.0-0.16); EOSINOPHILS 1 %; EOSINOPHILS ABSOLUTE (CALC) 0.55 10/3/uL (0.0-0.53); IMMATURE GRANS ABSOLUTE (CALC) 7.19 10/3/uL (0.0-0.11); LYMPHOCYTES 5 %; LYMPHOCYTES ABSOLUTE (CALC) 2.77 10/3/uL (0.67-4.30); METAMYELOCYTES 8 %; MYELOCYTES 5 %; NEUTROPHILS ABSOLUTE (CALC) 44.24 10/3/uL (2.02-8.40); PLATELET ESTIMATE SLT DEC (ADEQUATE); SEGMENTED NEUTROPHIL (0) 52 %; TOTAL NUCLEATED CELLS 100
[2016-06-05 18:38] LABS: TOXIC GRANULATION MOD
[2016-06-05 18:39] LABS: RBC MORPHOLOGY NORM (NORMAL); SICKLE CELLS(NOT ORD) OCC (0-2/OIF)
[2016-06-05 23:37] LABS: HEMOGLOBIN 9.5 g/dL (12.0-16.0); MEAN CORPUS HGB CONC 37.7 g/dL (32.0-36.0); MEAN CORPUSCULAR HEMOGLOB 31.3 pg (26.0-34.0); MEAN CORPUSCULAR VOLUME 82.9 fL (80-100); MEAN PLATELET VOLUME 11.7 fL (9.2-13.0); NUCLEATED RED BLOOD CELLS 0.9 /100WBC (0-0); PLATELET COUNT 144 10/3/uL (150-400); RBC DISTRIBUTION WIDTH 16.7 % (12.0-16.0); RED CELL COUNT 3.04 10/6/uL (4.0-5.6)
[2016-06-05 23:38] LABS: CALCIUM, SERUM 7.5 MG/DL (8.5-10.4); CHLORIDE, SERUM 90 MMOL/L (96-112); CREATININE 1.12 MG/DL (0.55-1.02); GFR AFRICAN AMERICAN 64 ML/MIN (>=60); GFR NON AFRICAN AMERICAN 55 ML/MIN (>=60); SODIUM, SERUM 134 MMOL/L (135-148)
[2016-06-05 23:40] LABS: CO2 (CARBON DIOXIDE) 31 MMOL/L (24-34); GLUCOSE, SERUM 174 MG/DL (60-99); POTASSIUM, SERUM 4.1 MMOL/L (3.5-5.3)
[2016-06-05 23:48] LABS: HEMATOCRIT 25.2 % (36.0-48.0); MANUAL DIFF YES %; WHITE BLOOD CELLS 46.4 10/3/uL (4.5-10.5)
[2016-06-05 23:54] LABS: BUN (BLOOD UREA NITROGEN) 14 MG/DL (6-23)
[2016-06-06 00:31] LABS: BAND NEUTROPHILS 26 %; IMMATURE GRANS ABSOLUTE (CALC) 9.28 10/3/uL (0.0-0.11); LYMPHOCYTES 1 %; LYMPHOCYTES ABSOLUTE (CALC) 0.46 10/3/uL (0.67-4.30); METAMYELOCYTES 14 %; MYELOCYTES 6 %; NEUTROPHILS ABSOLUTE (CALC) 36.66 10/3/uL (2.02-8.40); SEGMENTED NEUTROPHIL (0) 53 %; TOTAL NUCLEATED CELLS 100
[2016-06-06 00:32] LABS: ANISOCYTOSIS 1+ (5-10/OIF) (0-5/OIF); PLATELET ESTIMATE SLT DEC (ADEQUATE)
[2016-06-06 00:33] LABS: TOXIC GRANULATION 1+
[2016-06-06 03:41] LABS: ALLENS TEST Pos; CARBOXYHEMOGLOBIN 0.6 % (0-3); HCO3 (ACTUAL BICARBONATE) 29.4 MEQ/L (23-27); HEMOBLOGIN CONTENT 8.4 G/DL (12-16); INSTRUMENT SERIAL # 8083; METHEMOGLOBIN 0.6 % (0-3); MODE CMV; O2 CONTENT 11.4 VOL% (18-24); OPERATOR ID 13415; PCO2 (CO2 TENSION) 49 MMHG (35-45); PO2 (O2 TENSION) 84 MMHG (79-93); SAMPLE Arterial; TIDAL VOLUME 500 ML; pH 7.39 (7.37-7.43)
[2016-06-06 05:50] LABS: ALBUMIN 1.8 G/DL (3.5-5.0); CALCIUM, SERUM 7.6 MG/DL (8.5-10.4); CHLORIDE, SERUM 91 MMOL/L (96-112); CO2 (CARBON DIOXIDE) 30 MMOL/L (24-34); CREATININE 1.19 MG/DL (0.55-1.02); GFR AFRICAN AMERICAN 60 ML/MIN (>=60); GFR NON AFRICAN AMERICAN 51 ML/MIN (>=60); SODIUM, SERUM 135 MMOL/L (135-148)
[2016-06-06 06:06] LABS: BUN (BLOOD UREA NITROGEN) 22 MG/DL (6-23); GLUCOSE, SERUM 194 MG/DL (60-99); PHOSPHORUS, SERUM 0.8 MG/DL (2.5-4.5); POTASSIUM, SERUM 3.6 MMOL/L (3.5-5.3)
[2016-06-06 06:11] LABS: HEMATOCRIT 21.7 % (36.0-48.0); HEMOGLOBIN 8.2 g/dL (12.0-16.0); MEAN CORPUS HGB CONC 37.8 g/dL (32.0-36.0); MEAN CORPUSCULAR HEMOGLOB 31.3 pg (26.0-34.0); MEAN CORPUSCULAR VOLUME 82.8 fL (80-100); MEAN PLATELET VOLUME 12.1 fL (9.2-13.0); NUCLEATED RED BLOOD CELLS 1.2 /100WBC (0-0); PLATELET COUNT 138 10/3/uL (150-400); RBC DISTRIBUTION WIDTH 16.4 % (12.0-16.0); RED CELL COUNT 2.62 10/6/uL (4.0-5.6); WHITE BLOOD CELLS 48.3 10/3/uL (4.5-10.5)
[2016-06-06 06:12] LABS: MANUAL DIFF YES %
[2016-06-06 07:58] LABS: BAND NEUTROPHILS 24 %; EOSINOPHILS 2 %; EOSINOPHILS ABSOLUTE (CALC) 0.97 10/3/uL (0.0-0.53); IMMATURE GRANS ABSOLUTE (CALC) 11.11 10/3/uL (0.0-0.11); LYMPHOCYTES 11 %; LYMPHOCYTES ABSOLUTE (CALC) 5.31 10/3/uL (0.67-4.30); METAMYELOCYTES 16 %; MONOCYTES 8 %; MONOCYTES ABSOLUTE (CALC) 3.86 10/3/uL (0.21-1.20); MYELOCYTES 7 %; NEUTROPHILS ABSOLUTE (CALC) 27.05 10/3/uL (2.02-8.40); PLATELET ESTIMATE SLT DEC (ADEQUATE); SEGMENTED NEUTROPHIL (0) 32 %; TOTAL NUCLEATED CELLS 100; TOXIC GRANULATION 1+; VACUOLATED NEUTROPHILES FEW
[2016-06-06 07:59] LABS: POLYCHROMASIA 1+ (2-5/OIF) (0-1/OIF)
[2016-06-06 08:00] LABS: ANISOCYTOSIS 1+ (5-10/OIF) (0-5/OIF)
[2016-06-06 11:59] LABS: CHLORIDE, SERUM 91 MMOL/L (96-112); CO2 (CARBON DIOXIDE) 29 MMOL/L (24-34); GFR AFRICAN AMERICAN 65 ML/MIN (>=60); GFR NON AFRICAN AMERICAN 56 ML/MIN (>=60); SODIUM, SERUM 135 MMOL/L (135-148)
[2016-06-06 12:02] LABS: POTASSIUM, SERUM 3.1 MMOL/L (3.5-5.3)
[2016-06-06 12:24] LABS: HEMOGLOBIN 7.8 g/dL (12.0-16.0); MEAN CORPUS HGB CONC 37.1 g/dL (32.0-36.0); MEAN CORPUSCULAR HEMOGLOB 30.8 pg (26.0-34.0); PLATELET COUNT 106 10/3/uL (150-400); RBC DISTRIBUTION WIDTH 16.5 % (12.0-16.0); RED CELL COUNT 2.53 10/6/uL (4.0-5.6)
[2016-06-06 12:25] LABS: MANUAL DIFF YES %; WHITE BLOOD CELLS 46.8 10/3/uL (4.5-10.5)
[2016-06-06 12:36] LABS: BUN (BLOOD UREA NITROGEN) 24 MG/DL (6-23)
[2016-06-06 12:37] LABS: GLUCOSE, SERUM 233 MG/DL (60-99)
[2016-06-06 12:43] LABS: CALCIUM, SERUM 8.2 MG/DL (8.5-10.4)
[2016-06-06 13:06] LABS: BAND NEUTROPHILS 27 %; EOSINOPHILS 1 %; EOSINOPHILS ABSOLUTE (CALC) 0.47 10/3/uL (0.0-0.53); IMMATURE GRANS ABSOLUTE (CALC) 12.17 10/3/uL (0.0-0.11); LYMPHOCYTES 10 %; LYMPHOCYTES ABSOLUTE (CALC) 4.68 10/3/uL (0.67-4.30); METAMYELOCYTES 18 %; MONOCYTES 6 %; MONOCYTES ABSOLUTE (CALC) 2.81 10/3/uL (0.21-1.20); MYELOCYTES 8 %; NEUTROPHILS ABSOLUTE (CALC) 26.68 10/3/uL (2.02-8.40); SEGMENTED NEUTROPHIL (0) 30 %; TOTAL NUCLEATED CELLS 100
[2016-06-06 13:07] LABS: HELMET CELLS OCC (0-2/OIF); PLATELET ESTIMATE SLT DEC (ADEQUATE); POLYCHROMASIA 1+ (2-5/OIF) (0-1/OIF); TOXIC GRANULATION 2+; VACUOLATED NEUTROPHILES FEW
[2016-06-06 13:08] LABS: ANISOCYTOSIS 1+ (5-10/OIF) (0-5/OIF); TARGET CELLS OCC (1-2/OIF) (0-1/OIF); TEARDROP SHAPED RBCS FEW (3-10/OIF)
[2016-06-06 18:02] LABS: BUN (BLOOD UREA NITROGEN) 23 MG/DL (6-23); CALCIUM, SERUM 8.1 MG/DL (8.5-10.4); CHLORIDE, SERUM 94 MMOL/L (96-112); CO2 (CARBON DIOXIDE) 29 MMOL/L (24-34); CREATININE 1.05 MG/DL (0.55-1.02); GFR AFRICAN AMERICAN 69 ML/MIN (>=60); GFR NON AFRICAN AMERICAN 60 ML/MIN (>=60); SODIUM, SERUM 135 MMOL/L (135-148)
[2016-06-06 18:03] LABS: PHOSPHORUS, SERUM 5.6 MG/DL (2.5-4.5)
[2016-06-06 18:04] LABS: GLUCOSE, SERUM 208 MG/DL (60-99); POTASSIUM, SERUM 3.5 MMOL/L (3.5-5.3)
[2016-06-06 18:20] LABS: HEMOGLOBIN 7.3 g/dL (12.0-16.0); MEAN CORPUS HGB CONC 37.1 g/dL (32.0-36.0); MEAN CORPUSCULAR HEMOGLOB 30.5 pg (26.0-34.0); MEAN CORPUSCULAR VOLUME 82.4 fL (80-100); MEAN PLATELET VOLUME 11.9 fL (9.2-13.0); PLATELET COUNT 104 10/3/uL (150-400); RBC DISTRIBUTION WIDTH 16.6 % (12.0-16.0); RED CELL COUNT 2.39 10/6/uL (4.0-5.6)
[2016-06-06 19:43] LABS: HEMATOCRIT 19.7 % (36.0-48.0); MANUAL DIFF YES %; WHITE BLOOD CELLS 41.3 10/3/uL (4.5-10.5)
[2016-06-06 20:46] LABS: BAND NEUTROPHILS 18 %; EOSINOPHILS 1 %; EOSINOPHILS ABSOLUTE (CALC) 0.41 10/3/uL (0.0-0.53); IMMATURE GRANS ABSOLUTE (CALC) 2.48 10/3/uL (0.0-0.11); LYMPHOCYTES 8 %; METAMYELOCYTES 2 %; MYELOCYTES 4 %; NEUTROPHILS ABSOLUTE (CALC) 35.11 10/3/uL (2.02-8.40); SEGMENTED NEUTROPHIL (0) 67 %; TOTAL NUCLEATED CELLS 100
[2016-06-06 20:47] LABS: ANISOCYTOSIS 1+ (5-10/OIF) (0-5/OIF); PLATELET ESTIMATE SLT DEC (ADEQUATE); POIKILOCYTOSIS 1+ (5-10/OIF) (0-5/OIF)
[2016-06-06 20:48] LABS: STOMATOCYTES 1+ (3-10/OIF) (0-2/OIF); TEARDROP SHAPED RBCS OCC (0-2/OIF)
[2016-06-06 20:49] LABS: POLYCHROMASIA 1+ (2-5/OIF) (0-1/OIF); TARGET CELLS OCC (1-2/OIF) (0-1/OIF)
[2016-06-06 23:26] LABS: BUN (BLOOD UREA NITROGEN) 20 MG/DL (6-23); CALCIUM, SERUM 7.4 MG/DL (8.5-10.4); CHLORIDE, SERUM 92 MMOL/L (96-112); CO2 (CARBON DIOXIDE) 29 MMOL/L (24-34); CREATININE 0.81 MG/DL (0.55-1.02); GFR AFRICAN AMERICAN 95 ML/MIN (>=60); GFR NON AFRICAN AMERICAN 82 ML/MIN (>=60); SODIUM, SERUM 135 MMOL/L (135-148)
[2016-06-06 23:27] LABS: GLUCOSE, SERUM 175 MG/DL (60-99); POTASSIUM, SERUM 3.4 MMOL/L (3.5-5.3)
[2016-06-06 23:40] LABS: MEAN CORPUS HGB CONC 36.6 g/dL (32.0-36.0); MEAN CORPUSCULAR HEMOGLOB 30.5 pg (26.0-34.0); MEAN CORPUSCULAR VOLUME 83.4 fL (80-100); MEAN PLATELET VOLUME 10.9 fL (9.2-13.0); NUCLEATED RED BLOOD CELLS 0.6 /100WBC (0-0); PLATELET COUNT 96 10/3/uL (150-400); RBC DISTRIBUTION WIDTH 16.4 % (12.0-16.0); RED CELL COUNT 2.23 10/6/uL (4.0-5.6)
[2016-06-06 23:41] LABS: HEMATOCRIT 18.6 % (36.0-48.0); HEMOGLOBIN 6.8 g/dL (12.0-16.0); WHITE BLOOD CELLS 40.8 10/3/uL (4.5-10.5)
[2016-06-06 23:43] LABS: MANUAL DIFF YES %
[2016-06-06 23:56] LABS: BAND NEUTROPHILS 36 %; IMMATURE GRANS ABSOLUTE (CALC) 6.53 10/3/uL (0.0-0.11); METAMYELOCYTES 13 %; MYELOCYTES 3 %; NEUTROPHILS ABSOLUTE (CALC) 34.27 10/3/uL (2.02-8.40); SEGMENTED NEUTROPHIL (0) 48 %; TOTAL NUCLEATED CELLS 100
[2016-06-06 23:57] LABS: ANISOCYTOSIS 1+ (5-10/OIF) (0-5/OIF); PLATELET ESTIMATE DEC (ADEQUATE); TEARDROP SHAPED RBCS FEW (3-10/OIF); TOXIC GRANULATION 1+
[2016-06-07 03:58] LABS: ALLENS TEST Pos; BE (BASE EXCESS) 4.9 MEQ/L (0 +/- 2.5); CARBOXYHEMOGLOBIN 0.3 % (0-3); HCO3 (ACTUAL BICARBONATE) 28.2 MEQ/L (23-27); HEMOBLOGIN CONTENT 7.3 G/DL (12-16); INSTRUMENT SERIAL # 35151; METHEMOGLOBIN 1.4 % (0-3); O2 CONTENT 9.7 VOL% (18-24); OPERATOR ID 13415; PCO2 (CO2 TENSION) 36 MMHG (35-45); PO2 (O2 TENSION) 69 MMHG (79-93); SAMPLE Arterial; TIDAL VOLUME 500 ML; pH 7.51 (7.37-7.43)
[2016-06-07 05:44] LABS: HEMATOCRIT 20.8 % (36.0-48.0); HEMOGLOBIN 7.6 g/dL (12.0-16.0); MEAN CORPUS HGB CONC 36.5 g/dL (32.0-36.0); MEAN CORPUSCULAR HEMOGLOB 30.6 pg (26.0-34.0); MEAN CORPUSCULAR VOLUME 83.9 fL (80-100); MEAN PLATELET VOLUME 10.8 fL (9.2-13.0); PLATELET COUNT 88 10/3/uL (150-400); RBC DISTRIBUTION WIDTH 15.8 % (12.0-16.0); RED CELL COUNT 2.48 10/6/uL (4.0-5.6); WHITE BLOOD CELLS 33.9 10/3/uL (4.5-10.5)
[2016-06-07 05:45] LABS: MANUAL DIFF YES %
[2016-06-07 05:58] LABS: ALBUMIN 1.7 G/DL (3.5-5.0); BUN (BLOOD UREA NITROGEN) 18 MG/DL (6-23); CALCIUM, SERUM 7.2 MG/DL (8.5-10.4); CHLORIDE, SERUM 94 MMOL/L (96-112); CO2 (CARBON DIOXIDE) 29 MMOL/L (24-34); GFR AFRICAN AMERICAN 83 ML/MIN (>=60); GFR NON AFRICAN AMERICAN 72 ML/MIN (>=60); SODIUM, SERUM 137 MMOL/L (135-148)
[2016-06-07 06:00] LABS: GLUCOSE, SERUM 160 MG/DL (60-99); POTASSIUM, SERUM 3.5 MMOL/L (3.5-5.3); TOTAL PROTEIN 4.7 G/DL (6.0-8.5)
[2016-06-07 06:01] LABS: ALKALINE PHOSPHATASE 139 U/L (45-117); DIRECT BILIRUBIN 0.2 MG/DL (0.0-0.4); INDIRECT BILIRUBIN(NOT ORDER) 0.4 MG/DL (0.1-0.9); SGOT(AST) 72 U/L (5-40); SGPT(ALT) 91 U/L (5-65); TOTAL BILIRUBIN 0.6 MG/DL (0-1.2)
[2016-06-07 07:15] LABS: BAND NEUTROPHILS 29 %; BASOPHILS 1 %; BASOPHILS ABSOLUTE (CALC) 0.34 10/3/uL (0.0-0.16); LYMPHOCYTES 9 %; LYMPHOCYTES ABSOLUTE (CALC) 3.05 10/3/uL (0.67-4.30); METAMYELOCYTES 15 %; MONOCYTES 4 %; MONOCYTES ABSOLUTE (CALC) 1.36 10/3/uL (0.21-1.20); MYELOCYTES 7 %; NEUTROPHILS ABSOLUTE (CALC) 21.36 10/3/uL (2.02-8.40); PROMYELOCYTES 1 % (0); SEGMENTED NEUTROPHIL (0) 34 %; TOTAL NUCLEATED CELLS 100
[2016-06-07 07:17] LABS: PLATELET ESTIMATE DEC (ADEQUATE); POLYCHROMASIA 1+ (2-5/OIF) (0-1/OIF); TEARDROP SHAPED RBCS OCC (0-2/OIF); TOXIC GRANULATION 2+; VACUOLATED NEUTROPHILES FEW
[2016-06-07 07:18] LABS: TARGET CELLS OCC (1-2/OIF) (0-1/OIF)
[2016-06-07 07:19] LABS: ACANTHOCYTES OCC (0-2/OIF)
[2016-06-07 07:20] LABS: HELMET CELLS OCC (0-2/OIF)
[2016-06-07 11:44] LABS: MEAN CORPUS HGB CONC 35.6 g/dL (32.0-36.0); MEAN CORPUSCULAR HEMOGLOB 30.1 pg (26.0-34.0); MEAN CORPUSCULAR VOLUME 84.7 fL (80-100); MEAN PLATELET VOLUME 11.3 fL (9.2-13.0); NUCLEATED RED BLOOD CELLS 0.4 /100WBC (0-0); PLATELET COUNT 89 10/3/uL (150-400); RBC DISTRIBUTION WIDTH 15.6 % (12.0-16.0); RED CELL COUNT 2.29 10/6/uL (4.0-5.6)
[2016-06-07 11:45] LABS: BUN (BLOOD UREA NITROGEN) 19 MG/DL (6-23); CALCIUM, SERUM 7.3 MG/DL (8.5-10.4); CHLORIDE, SERUM 93 MMOL/L (96-112); CO2 (CARBON DIOXIDE) 28 MMOL/L (24-34); CREATININE 0.93 MG/DL (0.55-1.02); GFR AFRICAN AMERICAN 80 ML/MIN (>=60); GFR NON AFRICAN AMERICAN 69 ML/MIN (>=60); HEMATOCRIT 19.4 % (36.0-48.0); HEMOGLOBIN 6.9 g/dL (12.0-16.0); SODIUM, SERUM 135 MMOL/L (135-148); WHITE BLOOD CELLS 31.9 10/3/uL (4.5-10.5)
[2016-06-07 11:46] LABS: GLUCOSE, SERUM 284 MG/DL (60-99); MANUAL DIFF YES %; POTASSIUM, SERUM 3.5 MMOL/L (3.5-5.3)
[2016-06-07 12:12] LABS: BAND NEUTROPHILS 33 %; EOSINOPHILS 1 %; EOSINOPHILS ABSOLUTE (CALC) 0.32 10/3/uL (0.0-0.53); LYMPHOCYTES 2 %; LYMPHOCYTES ABSOLUTE (CALC) 0.64 10/3/uL (0.67-4.30); METAMYELOCYTES 11 %; MONOCYTES 1 %; MONOCYTES ABSOLUTE (CALC) 0.32 10/3/uL (0.21-1.20); MYELOCYTES 5 %; NEUTROPHILS ABSOLUTE (CALC) 25.52 10/3/uL (2.02-8.40); SEGMENTED NEUTROPHIL (0) 47 %; TOTAL NUCLEATED CELLS 100
[2016-06-07 12:13] LABS: PLATELET ESTIMATE DEC (ADEQUATE); POLYCHROMASIA 1+ (2-5/OIF) (0-1/OIF); TOXIC GRANULATION 2+
[2016-06-07 17:21] LABS: BUN (BLOOD UREA NITROGEN) 17 MG/DL (6-23); CALCIUM, SERUM 7.7 MG/DL (8.5-10.4); CHLORIDE, SERUM 95 MMOL/L (96-112); CO2 (CARBON DIOXIDE) 28 MMOL/L (24-34); CREATININE 0.95 MG/DL (0.55-1.02); GFR AFRICAN AMERICAN 78 ML/MIN (>=60); GFR NON AFRICAN AMERICAN 67 ML/MIN (>=60); SODIUM, SERUM 137 MMOL/L (135-148)
[2016-06-07 17:25] LABS: GLUCOSE, SERUM 208 MG/DL (60-99)
[2016-06-07 17:44] LABS: HEMOGLOBIN 8.2 g/dL (12.0-16.0); MEAN CORPUS HGB CONC 36.6 g/dL (32.0-36.0); MEAN CORPUSCULAR HEMOGLOB 30.7 pg (26.0-34.0); MEAN CORPUSCULAR VOLUME 83.9 fL (80-100); MEAN PLATELET VOLUME 10.7 fL (9.2-13.0); NUCLEATED RED BLOOD CELLS 0.6 /100WBC (0-0); PLATELET COUNT 74 10/3/uL (150-400); RBC DISTRIBUTION WIDTH 15.5 % (12.0-16.0); RED CELL COUNT 2.67 10/6/uL (4.0-5.6)
[2016-06-07 18:00] LABS: HEMATOCRIT 22.4 % (36.0-48.0); MANUAL DIFF YES %; WHITE BLOOD CELLS 26.7 10/3/uL (4.5-10.5)
[2016-06-07 18:31] LABS: BAND NEUTROPHILS 4 %; EOSINOPHILS 1 %; EOSINOPHILS ABSOLUTE (CALC) 0.27 10/3/uL (0.0-0.53); LYMPHOCYTES 4 %; LYMPHOCYTES ABSOLUTE (CALC) 1.07 10/3/uL (0.67-4.30); METAMYELOCYTES 8 %; MONOCYTES 2 %; MONOCYTES ABSOLUTE (CALC) 0.53 10/3/uL (0.21-1.20); MYELOCYTES 4 %; NEUTROPHILS ABSOLUTE (CALC) 21.63 10/3/uL (2.02-8.40); SEGMENTED NEUTROPHIL (0) 77 %; TOTAL NUCLEATED CELLS 100
[2016-06-07 18:32] LABS: PLATELET ESTIMATE DEC (ADEQUATE); STOMATOCYTES 1+ (3-10/OIF) (0-2/OIF); TARGET CELLS OCC (1-2/OIF) (0-1/OIF); TEARDROP SHAPED RBCS OCC (0-2/OIF)
[2016-06-07 23:04] LABS: BUN (BLOOD UREA NITROGEN) 17 MG/DL (6-23); CALCIUM, SERUM 8.1 MG/DL (8.5-10.4); CHLORIDE, SERUM 95 MMOL/L (96-112); CREATININE 0.92 MG/DL (0.55-1.02); GFR AFRICAN AMERICAN 81 ML/MIN (>=60); GFR NON AFRICAN AMERICAN 70 ML/MIN (>=60); GLUCOSE, SERUM 169 MG/DL (60-99); POTASSIUM, SERUM 3.3 MMOL/L (3.5-5.3); SODIUM, SERUM 139 MMOL/L (135-148)
[2016-06-07 23:05] LABS: CO2 (CARBON DIOXIDE) 33 MMOL/L (24-34)
[2016-06-07 23:07] LABS: HEMATOCRIT 21.9 % (36.0-48.0); HEMOGLOBIN 7.8 g/dL (12.0-16.0); MEAN CORPUS HGB CONC 35.6 g/dL (32.0-36.0); MEAN CORPUSCULAR HEMOGLOB 29.7 pg (26.0-34.0); MEAN CORPUSCULAR VOLUME 83.3 fL (80-100); MEAN PLATELET VOLUME 11.2 fL (9.2-13.0); PLATELET COUNT 84 10/3/uL (150-400); RBC DISTRIBUTION WIDTH 15.4 % (12.0-16.0); RED CELL COUNT 2.63 10/6/uL (4.0-5.6); WHITE BLOOD CELLS 23.6 10/3/uL (4.5-10.5)
[2016-06-07 23:10] LABS: MANUAL DIFF YES %
[2016-06-07 23:46] LABS: BAND NEUTROPHILS 4 %; IMMATURE GRANS ABSOLUTE (CALC) 1.18 10/3/uL (0.0-0.11); LYMPHOCYTES 13 %; LYMPHOCYTES ABSOLUTE (CALC) 3.07 10/3/uL (0.67-4.30); METAMYELOCYTES 3 %; MONOCYTES 4 %; MONOCYTES ABSOLUTE (CALC) 0.94 10/3/uL (0.21-1.20); MYELOCYTES 2 %; NEUTROPHILS ABSOLUTE (CALC) 18.41 10/3/uL (2.02-8.40); PLATELET ESTIMATE SLT DEC (ADEQUATE); SEGMENTED NEUTROPHIL (0) 74 %; TOTAL NUCLEATED CELLS 100
[2016-06-07 23:47] LABS: GIANT PLATELET FEW; RBC MORPHOLOGY NORM (NORMAL)
[2016-06-08 03:33] LABS: BE (BASE EXCESS) 6.7 MEQ/L (0 +/- 2.5); HCO3 (ACTUAL BICARBONATE) 30.8 MEQ/L (23-27); INSTRUMENT SERIAL # 35151; PCO2 (CO2 TENSION) 42 MMHG (35-45); PO2 (O2 TENSION) 64 MMHG (79-93); pH 7.48 (7.37-7.43)
[2016-06-08 03:34] LABS: ALLENS TEST Pos; CARBOXYHEMOGLOBIN 0.3 % (0-3); HEMOBLOGIN CONTENT 9.2 G/DL (12-16); METHEMOGLOBIN 0.8 % (0-3); MODE CMV; O2 CONTENT 11.9 VOL% (18-24); OPERATOR ID 23712; SAMPLE Arterial; TIDAL VOLUME 500 ML
[2016-06-08 05:27] LABS: HEMATOCRIT 21.1 % (36.0-48.0); HEMOGLOBIN 7.5 g/dL (12.0-16.0); MEAN CORPUS HGB CONC 35.5 g/dL (32.0-36.0); MEAN CORPUSCULAR HEMOGLOB 30.2 pg (26.0-34.0); MEAN CORPUSCULAR VOLUME 85.1 fL (80-100); MEAN PLATELET VOLUME 10.9 fL (9.2-13.0); NUCLEATED RED BLOOD CELLS 0.5 /100WBC (0-0); PLATELET COUNT 82 10/3/uL (150-400); RBC DISTRIBUTION WIDTH 15.6 % (12.0-16.0); RED CELL COUNT 2.48 10/6/uL (4.0-5.6); WHITE BLOOD CELLS 22.2 10/3/uL (4.5-10.5)
[2016-06-08 05:28] LABS: MANUAL DIFF YES %
[2016-06-08 05:30] LABS: BUN (BLOOD UREA NITROGEN) 18 MG/DL (6-23); CALCIUM, SERUM 8.4 MG/DL (8.5-10.4); CHLORIDE, SERUM 96 MMOL/L (96-112); CO2 (CARBON DIOXIDE) 31 MMOL/L (24-34); CREATININE 1.01 MG/DL (0.55-1.02); GFR AFRICAN AMERICAN 73 ML/MIN (>=60); GFR NON AFRICAN AMERICAN 63 ML/MIN (>=60); GLUCOSE, SERUM 190 MG/DL (60-99); POTASSIUM, SERUM 3.5 MMOL/L (3.5-5.3); SODIUM, SERUM 137 MMOL/L (135-148)
[2016-06-08 05:34] LABS: PHOSPHORUS, SERUM 1.6 MG/DL (2.5-4.5)
[2016-06-08 06:47] LABS: BAND NEUTROPHILS 22 %; EOSINOPHILS 1 %; EOSINOPHILS ABSOLUTE (CALC) 0.22 10/3/uL (0.0-0.53); IMMATURE GRANS ABSOLUTE (CALC) 1.78 10/3/uL (0.0-0.11); LYMPHOCYTES 13 %; LYMPHOCYTES ABSOLUTE (CALC) 2.89 10/3/uL (0.67-4.30); METAMYELOCYTES 7 %; MONOCYTES 2 %; MONOCYTES ABSOLUTE (CALC) 0.44 10/3/uL (0.21-1.20); MYELOCYTES 1 %; NEUTROPHILS ABSOLUTE (CALC) 16.87 10/3/uL (2.02-8.40); PLATELET ESTIMATE DEC (ADEQUATE); SEGMENTED NEUTROPHIL (0) 54 %; TOTAL NUCLEATED CELLS 100
[2016-06-08 06:48] LABS: POLYCHROMASIA 1+ (2-5/OIF) (0-1/OIF); TOXIC GRANULATION 1+
[2016-06-08 10:41] LABS: BUN (BLOOD UREA NITROGEN) 19 MG/DL (6-23); CALCIUM, SERUM 8.5 MG/DL (8.5-10.4); CHLORIDE, SERUM 97 MMOL/L (96-112); CO2 (CARBON DIOXIDE) 30 MMOL/L (24-34); CREATININE 0.92 MG/DL (0.55-1.02); GFR AFRICAN AMERICAN 81 ML/MIN (>=60); GFR NON AFRICAN AMERICAN 70 ML/MIN (>=60); GLUCOSE, SERUM 206 MG/DL (60-99); POTASSIUM, SERUM 3.3 MMOL/L (3.5-5.3); SODIUM, SERUM 138 MMOL/L (135-148)
[2016-06-08 10:45] LABS: HEMATOCRIT 21.8 % (36.0-48.0); HEMOGLOBIN 7.6 g/dL (12.0-16.0); MEAN CORPUS HGB CONC 34.9 g/dL (32.0-36.0); MEAN CORPUSCULAR HEMOGLOB 29.6 pg (26.0-34.0); MEAN CORPUSCULAR VOLUME 84.8 fL (80-100); MEAN PLATELET VOLUME 11.5 fL (9.2-13.0); NUCLEATED RED BLOOD CELLS 0.3 /100WBC (0-0); PLATELET COUNT 85 10/3/uL (150-400); RBC DISTRIBUTION WIDTH 15.6 % (12.0-16.0); RED CELL COUNT 2.57 10/6/uL (4.0-5.6); WHITE BLOOD CELLS 22.6 10/3/uL (4.5-10.5)
[2016-06-08 10:46] LABS: MANUAL DIFF YES %
[2016-06-08 11:07] LABS: BAND NEUTROPHILS 20 %; IMMATURE GRANS ABSOLUTE (CALC) 2.49 10/3/uL (0.0-0.11); LYMPHOCYTES 11 %; LYMPHOCYTES ABSOLUTE (CALC) 2.49 10/3/uL (0.67-4.30); METAMYELOCYTES 9 %; MONOCYTES 2 %; MONOCYTES ABSOLUTE (CALC) 0.45 10/3/uL (0.21-1.20); MYELOCYTES 2 %; NEUTROPHILS ABSOLUTE (CALC) 17.18 10/3/uL (2.02-8.40); PLATELET ESTIMATE DEC (ADEQUATE); RBC MORPHOLOGY NORM (NORMAL); SEGMENTED NEUTROPHIL (0) 56 %; TOTAL NUCLEATED CELLS 100
[2016-06-08 17:33] LABS: BASOPHILS 0.1 %; BASOPHILS ABSOLUTE 0.03 10/3/uL (0.0-0.16); EOSINOPHILS 0.2 %; EOSINOPHILS ABSOLUTE 0.05 10/3/uL (0.0-0.53); HEMATOCRIT 22.9 % (36.0-48.0); HEMOGLOBIN 7.9 g/dL (12.0-16.0); IMMATURE GRANULOCYTES 10.2 %; LYMPHOCYTES ABSOLUTE 1.04 10/3/uL (0.67-4.30); MEAN CORPUS HGB CONC 34.5 g/dL (32.0-36.0); MEAN CORPUSCULAR HEMOGLOB 29.6 pg (26.0-34.0); MEAN CORPUSCULAR VOLUME 85.8 fL (80-100); MONOCYTES 6.4 %; MONOCYTES ABSOLUTE 1.31 10/3/uL (0.21-1.20); NEUTROPHILS 78.1 %; NEUTROPHILS ABSOLUTE 16.08 10/3/uL (2.02-8.40); PLATELET COUNT 74 10/3/uL (150-400); RBC DISTRIBUTION WIDTH 15.8 % (12.0-16.0); RED CELL COUNT 2.67 10/6/uL (4.0-5.6); WHITE BLOOD CELLS 20.6 10/3/uL (4.5-10.5)
[2016-06-08 17:38] LABS: MANUAL DIFF NO %
[2016-06-08 17:44] LABS: BUN (BLOOD UREA NITROGEN) 20 MG/DL (6-23); CALCIUM, SERUM 8.9 MG/DL (8.5-10.4); CHLORIDE, SERUM 95 MMOL/L (96-112); CO2 (CARBON DIOXIDE) 30 MMOL/L (24-34); CREATININE 0.94 MG/DL (0.55-1.02); GFR AFRICAN AMERICAN 79 ML/MIN (>=60); GFR NON AFRICAN AMERICAN 68 ML/MIN (>=60); GLUCOSE, SERUM 169 MG/DL (60-99); SODIUM, SERUM 137 MMOL/L (135-148)
[2016-06-08 17:45] LABS: PHOSPHORUS, SERUM 4.2 MG/DL (2.5-4.5)
[2016-06-08 18:04] LABS: BAND NEUTROPHILS 16 %; EOSINOPHILS 2 %; EOSINOPHILS ABSOLUTE (CALC) 0.41 10/3/uL (0.0-0.53); IMMATURE GRANS ABSOLUTE (CALC) 1.24 10/3/uL (0.0-0.11); LYMPHOCYTES 2 %; LYMPHOCYTES ABSOLUTE (CALC) 0.41 10/3/uL (0.67-4.30); METAMYELOCYTES 4 %; MONOCYTES 2 %; MONOCYTES ABSOLUTE (CALC) 0.41 10/3/uL (0.21-1.20); MYELOCYTES 2 %; NEUTROPHILS ABSOLUTE (CALC) 18.13 10/3/uL (2.02-8.40); PLATELET ESTIMATE DEC (ADEQUATE); SEGMENTED NEUTROPHIL (0) 72 %; TOTAL NUCLEATED CELLS 100
[2016-06-08 18:05] LABS: OVALOCYTES 1+ (3-10/OIF) (0-2/OIF); POLYCHROMASIA 1+ (2-5/OIF) (0-1/OIF); SCHISTOCYTES OCC (0-2/OIF)
[2016-06-08 22:58] LABS: BASOPHILS 0.2 %; BASOPHILS ABSOLUTE 0.03 10/3/uL (0.0-0.16); EOSINOPHILS 0.1 %; EOSINOPHILS ABSOLUTE 0.01 10/3/uL (0.0-0.53); HEMATOCRIT 21.9 % (36.0-48.0); HEMOGLOBIN 7.7 g/dL (12.0-16.0); IMMATURE GRANULOCYTES 8.6 %; IMMATURE GRANULOCYTES ABSOLUTE 1.59 10/3/uL (0.0-0.11); LYMPHOCYTES 8.6 %; LYMPHOCYTES ABSOLUTE 1.59 10/3/uL (0.67-4.30); MEAN CORPUS HGB CONC 35.2 g/dL (32.0-36.0); MEAN CORPUSCULAR HEMOGLOB 30.2 pg (26.0-34.0); MEAN CORPUSCULAR VOLUME 85.9 fL (80-100); MEAN PLATELET VOLUME 10.7 fL (9.2-13.0); MONOCYTES 6.4 %; MONOCYTES ABSOLUTE 1.18 10/3/uL (0.21-1.20); NEUTROPHILS 76.1 %; NEUTROPHILS ABSOLUTE 14.16 10/3/uL (2.02-8.40); PLATELET COUNT 74 10/3/uL (150-400); RBC DISTRIBUTION WIDTH 15.7 % (12.0-16.0); RED CELL COUNT 2.55 10/6/uL (4.0-5.6); WHITE BLOOD CELLS 18.6 10/3/uL (4.5-10.5)
[2016-06-08 22:59] LABS: MANUAL DIFF NO %
[2016-06-08 23:07] LABS: BUN (BLOOD UREA NITROGEN) 19 MG/DL (6-23); CALCIUM, SERUM 9.2 MG/DL (8.5-10.4); CHLORIDE, SERUM 97 MMOL/L (96-112); CO2 (CARBON DIOXIDE) 31 MMOL/L (24-34); CREATININE 0.95 MG/DL (0.55-1.02); GFR AFRICAN AMERICAN 78 ML/MIN (>=60); GFR NON AFRICAN AMERICAN 67 ML/MIN (>=60); GLUCOSE, SERUM 136 MG/DL (60-99); POTASSIUM, SERUM 3.6 MMOL/L (3.5-5.3); SODIUM, SERUM 139 MMOL/L (135-148)
[2016-06-08 23:57] LABS: BAND NEUTROPHILS 7 %; IMMATURE GRANS ABSOLUTE (CALC) 1.67 10/3/uL (0.0-0.11); LYMPHOCYTES 6 %; LYMPHOCYTES ABSOLUTE (CALC) 1.12 10/3/uL (0.67-4.30); METAMYELOCYTES 6 %; MONOCYTES 4 %; MONOCYTES ABSOLUTE (CALC) 0.74 10/3/uL (0.21-1.20); MYELOCYTES 3 %; NEUTROPHILS ABSOLUTE (CALC) 15.07 10/3/uL (2.02-8.40); PLATELET ESTIMATE DEC (ADEQUATE); POLYCHROMASIA 1+ (2-5/OIF) (0-1/OIF); SEGMENTED NEUTROPHIL (0) 74 %; TOTAL NUCLEATED CELLS 100
[2016-06-09 04:24] LABS: BE (BASE EXCESS) 5.7 MEQ/L (0 +/- 2.5); CARBOXYHEMOGLOBIN 0.3 % (0-3); HEMOBLOGIN CONTENT 8.2 G/DL (12-16); INSTRUMENT SERIAL # 35151; METHEMOGLOBIN 0.9 % (0-3); MODE CMV; O2 CONTENT 10.8 VOL% (18-24); PCO2 (CO2 TENSION) 43 MMHG (35-45); PO2 (O2 TENSION) 73 MMHG (79-93); SAMPLE Arterial; TIDAL VOLUME 500 ML; pH 7.47 (7.37-7.43)
[2016-06-09 04:56] LABS: HEMATOCRIT 21.9 % (36.0-48.0); HEMOGLOBIN 7.4 g/dL (12.0-16.0); MEAN CORPUS HGB CONC 33.8 g/dL (32.0-36.0); MEAN CORPUSCULAR HEMOGLOB 29.4 pg (26.0-34.0); MEAN CORPUSCULAR VOLUME 86.9 fL (80-100); MEAN PLATELET VOLUME 10.6 fL (9.2-13.0); PLATELET COUNT 68 10/3/uL (150-400); RBC DISTRIBUTION WIDTH 15.9 % (12.0-16.0); RED CELL COUNT 2.52 10/6/uL (4.0-5.6); WHITE BLOOD CELLS 17.5 10/3/uL (4.5-10.5)
[2016-06-09 04:58] LABS: MANUAL DIFF YES %
[2016-06-09 05:11] LABS: BUN (BLOOD UREA NITROGEN) 17 MG/DL (6-23); CALCIUM, SERUM 9.4 MG/DL (8.5-10.4); CHLORIDE, SERUM 97 MMOL/L (96-112); CO2 (CARBON DIOXIDE) 30 MMOL/L (24-34); CREATININE 0.97 MG/DL (0.55-1.02); GFR AFRICAN AMERICAN 76 ML/MIN (>=60); GFR NON AFRICAN AMERICAN 66 ML/MIN (>=60); GLUCOSE, SERUM 114 MG/DL (60-99); POTASSIUM, SERUM 3.5 MMOL/L (3.5-5.3); SODIUM, SERUM 139 MMOL/L (135-148)
[2016-06-09 05:12] LABS: PHOSPHORUS, SERUM 2.5 MG/DL (2.5-4.5)
[2016-06-09 05:34] LABS: BAND NEUTROPHILS 12 %; LYMPHOCYTES 9 %; LYMPHOCYTES ABSOLUTE (CALC) 1.58 10/3/uL (0.67-4.30); METAMYELOCYTES 6 %; MONOCYTES 5 %; MONOCYTES ABSOLUTE (CALC) 0.88 10/3/uL (0.21-1.20); MYELOCYTES 2 %; NEUTROPHILS ABSOLUTE (CALC) 13.65 10/3/uL (2.02-8.40); PLATELET ESTIMATE DEC (ADEQUATE); SEGMENTED NEUTROPHIL (0) 66 %; TOTAL NUCLEATED CELLS 100
[2016-06-09 05:35] LABS: MACROCYTES 1+ (5-10/OIF) (0-5/OIF); POLYCHROMASIA 1+ (2-5/OIF) (0-1/OIF)
[2016-06-09 10:22] LABS: INTERNATIONAL NORMAL RATI 1.1 UNITS (-); PROTIME (NOT ORD) 14.1 SEC (12.0-14.5)
[2016-06-09 10:23] LABS: PARTIAL THROMBO TIME 26.7 SEC (22.5-37.2)
[2016-06-09 11:24] LABS: HEMATOCRIT 23.6 % (36.0-48.0); HEMOGLOBIN 7.8 g/dL (12.0-16.0); MEAN CORPUS HGB CONC 33.1 g/dL (32.0-36.0); MEAN CORPUSCULAR HEMOGLOB 29.1 pg (26.0-34.0); MEAN CORPUSCULAR VOLUME 88.1 fL (80-100); MEAN PLATELET VOLUME 10.9 fL (9.2-13.0); PLATELET COUNT 81 10/3/uL (150-400); RBC DISTRIBUTION WIDTH 16.6 % (12.0-16.0); RED CELL COUNT 2.68 10/6/uL (4.0-5.6); WHITE BLOOD CELLS 18.1 10/3/uL (4.5-10.5)
[2016-06-09 11:25] LABS: MANUAL DIFF YES %
[2016-06-09 11:30] LABS: BUN (BLOOD UREA NITROGEN) 19 MG/DL (6-23); CALCIUM, SERUM 9.4 MG/DL (8.5-10.4); CHLORIDE, SERUM 95 MMOL/L (96-112); CO2 (CARBON DIOXIDE) 33 MMOL/L (24-34); CREATININE 1.11 MG/DL (0.55-1.02); GFR AFRICAN AMERICAN 65 ML/MIN (>=60); GFR NON AFRICAN AMERICAN 56 ML/MIN (>=60); GLUCOSE, SERUM 128 MG/DL (60-99); POTASSIUM, SERUM 3.8 MMOL/L (3.5-5.3); SODIUM, SERUM 138 MMOL/L (135-148)
[2016-06-09 11:49] LABS: BAND NEUTROPHILS 10 %; IMMATURE GRANS ABSOLUTE (CALC) 0.18 10/3/uL (0.0-0.11); LYMPHOCYTES 13 %; LYMPHOCYTES ABSOLUTE (CALC) 2.35 10/3/uL (0.67-4.30); METAMYELOCYTES 1 %; MONOCYTES 3 %; MONOCYTES ABSOLUTE (CALC) 0.54 10/3/uL (0.21-1.20); NEUTROPHILS ABSOLUTE (CALC) 15.02 10/3/uL (2.02-8.40); PLATELET ESTIMATE DEC (ADEQUATE); SEGMENTED NEUTROPHIL (0) 73 %; TARGET CELLS FEW (3-10/OIF) (0-1/OIF); TOTAL NUCLEATED CELLS 100
[2016-06-09 17:34] LABS: HEMATOCRIT 24.7 % (36.0-48.0); HEMOGLOBIN 8.1 g/dL (12.0-16.0); MEAN CORPUS HGB CONC 32.8 g/dL (32.0-36.0); MEAN CORPUSCULAR VOLUME 88.5 fL (80-100); MEAN PLATELET VOLUME 11.2 fL (9.2-13.0); PLATELET COUNT 85 10/3/uL (150-400); RED CELL COUNT 2.79 10/6/uL (4.0-5.6); WHITE BLOOD CELLS 15.7 10/3/uL (4.5-10.5)
[2016-06-09 17:46] LABS: BUN (BLOOD UREA NITROGEN) 20 MG/DL (6-23); CALCIUM, SERUM 9.3 MG/DL (8.5-10.4); CHLORIDE, SERUM 95 MMOL/L (96-112); CO2 (CARBON DIOXIDE) 32 MMOL/L (24-34); CREATININE 1.11 MG/DL (0.55-1.02); GFR AFRICAN AMERICAN 65 ML/MIN (>=60); GFR NON AFRICAN AMERICAN 56 ML/MIN (>=60); GLUCOSE, SERUM 141 MG/DL (60-99); PHOSPHORUS, SERUM 2.8 MG/DL (2.5-4.5); POTASSIUM, SERUM 4.2 MMOL/L (3.5-5.3); SODIUM, SERUM 138 MMOL/L (135-148)
[2016-06-09 17:48] LABS: MANUAL DIFF YES %
[2016-06-09 18:28] LABS: BAND NEUTROPHILS 5 %; EOSINOPHILS 1 %; EOSINOPHILS ABSOLUTE (CALC) 0.16 10/3/uL (0.0-0.53); LYMPHOCYTES 11 %; LYMPHOCYTES ABSOLUTE (CALC) 1.73 10/3/uL (0.67-4.30); MONOCYTES 3 %; MONOCYTES ABSOLUTE (CALC) 0.47 10/3/uL (0.21-1.20); NEUTROPHILS ABSOLUTE (CALC) 13.35 10/3/uL (2.02-8.40); SEGMENTED NEUTROPHIL (0) 80 %; TOTAL NUCLEATED CELLS 100
[2016-06-09 18:29] LABS: ANISOCYTOSIS 1+ (5-10/OIF) (0-5/OIF); PLATELET ESTIMATE DEC (ADEQUATE); POLYCHROMASIA 1+ (2-5/OIF) (0-1/OIF); TARGET CELLS FEW (3-10/OIF) (0-1/OIF)
[2016-06-09 23:47] LABS: HEMATOCRIT 24.8 % (36.0-48.0); HEMOGLOBIN 8.2 g/dL (12.0-16.0); MANUAL DIFF YES %; MEAN CORPUS HGB CONC 33.1 g/dL (32.0-36.0); MEAN CORPUSCULAR HEMOGLOB 29.3 pg (26.0-34.0); MEAN CORPUSCULAR VOLUME 88.6 fL (80-100); MEAN PLATELET VOLUME 10.8 fL (9.2-13.0); PLATELET COUNT 83 10/3/uL (150-400); RBC DISTRIBUTION WIDTH 17.2 % (12.0-16.0); WHITE BLOOD CELLS 14.7 10/3/uL (4.5-10.5)
[2016-06-10 00:01] LABS: ANISOCYTOSIS 1+ (5-10/OIF) (0-5/OIF); BAND NEUTROPHILS 4 %; BASOPHILIC STIPPLING 1+ (2-5/OIF) (0-1/OIF); LYMPHOCYTES 10 %; LYMPHOCYTES ABSOLUTE (CALC) 1.47 10/3/uL (0.67-4.30); MONOCYTES 7 %; MONOCYTES ABSOLUTE (CALC) 1.03 10/3/uL (0.21-1.20); PLATELET ESTIMATE DEC (ADEQUATE); POLYCHROMASIA 1+ (2-5/OIF) (0-1/OIF); SEGMENTED NEUTROPHIL (0) 79 %; TOTAL NUCLEATED CELLS 100
[2016-06-10 00:09] LABS: BUN (BLOOD UREA NITROGEN) 18 MG/DL (6-23); CALCIUM, SERUM 9.3 MG/DL (8.5-10.4); CHLORIDE, SERUM 96 MMOL/L (96-112); CO2 (CARBON DIOXIDE) 32 MMOL/L (24-34); CREATININE 1.05 MG/DL (0.55-1.02); GFR AFRICAN AMERICAN 69 ML/MIN (>=60); GFR NON AFRICAN AMERICAN 60 ML/MIN (>=60); GLUCOSE, SERUM 91 MG/DL (60-99); POTASSIUM, SERUM 3.5 MMOL/L (3.5-5.3); SODIUM, SERUM 139 MMOL/L (135-148)
[2016-06-10 04:52] LABS: HEMATOCRIT 24.1 % (36.0-48.0); HEMOGLOBIN 7.9 g/dL (12.0-16.0); MEAN CORPUS HGB CONC 32.8 g/dL (32.0-36.0); MEAN CORPUSCULAR HEMOGLOB 29.3 pg (26.0-34.0); MEAN CORPUSCULAR VOLUME 89.3 fL (80-100); MEAN PLATELET VOLUME 10.7 fL (9.2-13.0); PLATELET COUNT 86 10/3/uL (150-400); RBC DISTRIBUTION WIDTH 17.3 % (12.0-16.0); WHITE BLOOD CELLS 15.7 10/3/uL (4.5-10.5)
[2016-06-10 04:58] LABS: MANUAL DIFF YES %
[2016-06-10 05:01] LABS: BUN (BLOOD UREA NITROGEN) 19 MG/DL (6-23); CALCIUM, SERUM 9.5 MG/DL (8.5-10.4); CHLORIDE, SERUM 98 MMOL/L (96-112); CO2 (CARBON DIOXIDE) 30 MMOL/L (24-34); CREATININE 1.08 MG/DL (0.55-1.02); GFR AFRICAN AMERICAN 67 ML/MIN (>=60); GFR NON AFRICAN AMERICAN 58 ML/MIN (>=60); GLUCOSE, SERUM 96 MG/DL (60-99); POTASSIUM, SERUM 3.9 MMOL/L (3.5-5.3); SODIUM, SERUM 139 MMOL/L (135-148)
[2016-06-10 05:02] LABS: PHOSPHORUS, SERUM 1.9 MG/DL (2.5-4.5)
[2016-06-10 05:20] LABS: ANISOCYTOSIS 1+ (5-10/OIF) (0-5/OIF); BAND NEUTROPHILS 1 %; EOSINOPHILS 1 %; EOSINOPHILS ABSOLUTE (CALC) 0.16 10/3/uL (0.0-0.53); LYMPHOCYTES 11 %; LYMPHOCYTES ABSOLUTE (CALC) 1.73 10/3/uL (0.67-4.30); MONOCYTES 6 %; MONOCYTES ABSOLUTE (CALC) 0.94 10/3/uL (0.21-1.20); NEUTROPHILS ABSOLUTE (CALC) 12.87 10/3/uL (2.02-8.40); PLATELET ESTIMATE DEC (ADEQUATE); SEGMENTED NEUTROPHIL (0) 81 %; TOTAL NUCLEATED CELLS 100
[2016-06-10 11:27] LABS: BASOPHILS 0.4 %; BASOPHILS ABSOLUTE 0.05 10/3/uL (0.0-0.16); EOSINOPHILS 0 %; HEMATOCRIT 25.6 % (36.0-48.0); HEMOGLOBIN 8.7 g/dL (12.0-16.0); IMMATURE GRANULOCYTES 2.1 %; IMMATURE GRANULOCYTES ABSOLUTE 0.29 10/3/uL (0.0-0.11); LYMPHOCYTES 7.7 %; LYMPHOCYTES ABSOLUTE 1.09 10/3/uL (0.67-4.30); MEAN CORPUSCULAR HEMOGLOB 30.1 pg (26.0-34.0); MEAN CORPUSCULAR VOLUME 88.6 fL (80-100); MONOCYTES 7.8 %; NEUTROPHILS ABSOLUTE 11.57 10/3/uL (2.02-8.40); PLATELET COUNT 103 10/3/uL (150-400); RBC DISTRIBUTION WIDTH 16.9 % (12.0-16.0); RED CELL COUNT 2.89 10/6/uL (4.0-5.6); WHITE BLOOD CELLS 14.1 10/3/uL (4.5-10.5)
[2016-06-10 11:28] LABS: MANUAL DIFF NO %
[2016-06-10 11:34] LABS: BUN (BLOOD UREA NITROGEN) 17 MG/DL (6-23); CALCIUM, SERUM 9.4 MG/DL (8.5-10.4); CHLORIDE, SERUM 97 MMOL/L (96-112); CO2 (CARBON DIOXIDE) 30 MMOL/L (24-34); CREATININE 1.07 MG/DL (0.55-1.02); GFR AFRICAN AMERICAN 68 ML/MIN (>=60); GFR NON AFRICAN AMERICAN 58 ML/MIN (>=60); POTASSIUM, SERUM 3.6 MMOL/L (3.5-5.3); SODIUM, SERUM 138 MMOL/L (135-148)
[2016-06-10 11:36] LABS: GLUCOSE, SERUM 132 MG/DL (60-99)
[2016-06-10 18:04] LABS: BASOPHILS 0.3 %; BASOPHILS ABSOLUTE 0.04 10/3/uL (0.0-0.16); EOSINOPHILS 0.4 %; EOSINOPHILS ABSOLUTE 0.07 10/3/uL (0.0-0.53); HEMOGLOBIN 9.1 g/dL (12.0-16.0); IMMATURE GRANULOCYTES 1.5 %; IMMATURE GRANULOCYTES ABSOLUTE 0.23 10/3/uL (0.0-0.11); LYMPHOCYTES 7.8 %; LYMPHOCYTES ABSOLUTE 1.22 10/3/uL (0.67-4.30); MEAN CORPUS HGB CONC 32.5 g/dL (32.0-36.0); MEAN CORPUSCULAR VOLUME 89.2 fL (80-100); MEAN PLATELET VOLUME 10.8 fL (9.2-13.0); MONOCYTES 7.8 %; MONOCYTES ABSOLUTE 1.21 10/3/uL (0.21-1.20); NEUTROPHILS 82.2 %; NEUTROPHILS ABSOLUTE 12.81 10/3/uL (2.02-8.40); PLATELET COUNT 97 10/3/uL (150-400); RBC DISTRIBUTION WIDTH 17.4 % (12.0-16.0); RED CELL COUNT 3.14 10/6/uL (4.0-5.6); WHITE BLOOD CELLS 15.6 10/3/uL (4.5-10.5)
[2016-06-10 18:08] LABS: MANUAL DIFF NO %
[2016-06-10 18:13] LABS: BUN (BLOOD UREA NITROGEN) 18 MG/DL (6-23); CHLORIDE, SERUM 97 MMOL/L (96-112); CO2 (CARBON DIOXIDE) 30 MMOL/L (24-34); CREATININE 1.14 MG/DL (0.55-1.02); GFR AFRICAN AMERICAN 63 ML/MIN (>=60); GFR NON AFRICAN AMERICAN 54 ML/MIN (>=60); GLUCOSE, SERUM 113 MG/DL (60-99); POTASSIUM, SERUM 3.7 MMOL/L (3.5-5.3); SODIUM, SERUM 138 MMOL/L (135-148)
[2016-06-10 18:14] LABS: PHOSPHORUS, SERUM 2.7 MG/DL (2.5-4.5)
[2016-06-11 05:16] LABS: MEAN CORPUS HGB CONC 33.1 g/dL (32.0-36.0); MEAN CORPUSCULAR HEMOGLOB 29.7 pg (26.0-34.0); MEAN PLATELET VOLUME 10.1 fL (9.2-13.0); PLATELET COUNT 95 10/3/uL (150-400); RBC DISTRIBUTION WIDTH 17.6 % (12.0-16.0); RED CELL COUNT 2.69 10/6/uL (4.0-5.6); WHITE BLOOD CELLS 12.1 10/3/uL (4.5-10.5)
[2016-06-11 05:21] LABS: HEMATOCRIT 24.2 % (36.0-48.0); MANUAL DIFF YES %
[2016-06-11 05:30] LABS: CALCIUM, SERUM 9.3 MG/DL (8.5-10.4); CHLORIDE, SERUM 99 MMOL/L (96-112); CO2 (CARBON DIOXIDE) 29 MMOL/L (24-34); CREATININE 1.58 MG/DL (0.55-1.02); DIRECT BILIRUBIN 0.2 MG/DL (0.0-0.4); GFR AFRICAN AMERICAN 42 ML/MIN (>=60); GFR NON AFRICAN AMERICAN 36 ML/MIN (>=60); GLUCOSE, SERUM 98 MG/DL (60-99); INDIRECT BILIRUBIN(NOT ORDER) 0.3 MG/DL (0.1-0.9); PHOSPHORUS, SERUM 3.4 MG/DL (2.5-4.5); POTASSIUM, SERUM 3.8 MMOL/L (3.5-5.3); SGOT(AST) 39 U/L (5-40); SGPT(ALT) 47 U/L (5-65); SODIUM, SERUM 139 MMOL/L (135-148); TOTAL BILIRUBIN 0.5 MG/DL (0-1.2); TOTAL PROTEIN 4.9 G/DL (6.0-8.5)
[2016-06-11 05:31] LABS: ALKALINE PHOSPHATASE 88 U/L (45-117); BUN (BLOOD UREA NITROGEN) 22 MG/DL (6-23)
[2016-06-11 06:27] LABS: BAND NEUTROPHILS 1 %; BASOPHILS 1 %; BASOPHILS ABSOLUTE (CALC) 0.12 10/3/uL (0.0-0.16); EOSINOPHILS 1 %; EOSINOPHILS ABSOLUTE (CALC) 0.12 10/3/uL (0.0-0.53); LYMPHOCYTES 11 %; LYMPHOCYTES ABSOLUTE (CALC) 1.33 10/3/uL (0.67-4.30); MONOCYTES 2 %; MONOCYTES ABSOLUTE (CALC) 0.24 10/3/uL (0.21-1.20); NEUTROPHILS ABSOLUTE (CALC) 10.29 10/3/uL (2.02-8.40); PLATELET ESTIMATE DEC (ADEQUATE); POLYCHROMASIA 1+ (2-5/OIF) (0-1/OIF); SEGMENTED NEUTROPHIL (0) 84 %; TOTAL NUCLEATED CELLS 100
[2016-06-11 06:28] LABS: BASOPHILIC STIPPLING 1+ (2-5/OIF) (0-1/OIF)
[2016-06-12 05:03] LABS: BASOPHILS 0.6 %; BASOPHILS ABSOLUTE 0.07 10/3/uL (0.0-0.16); EOSINOPHILS 0.8 %; EOSINOPHILS ABSOLUTE 0.09 10/3/uL (0.0-0.53); HEMATOCRIT 24.2 % (36.0-48.0); HEMOGLOBIN 8.3 g/dL (12.0-16.0); IMMATURE GRANULOCYTES 0.7 %; IMMATURE GRANULOCYTES ABSOLUTE 0.08 10/3/uL (0.0-0.11); LYMPHOCYTES 13.3 %; LYMPHOCYTES ABSOLUTE 1.59 10/3/uL (0.67-4.30); MEAN CORPUS HGB CONC 34.3 g/dL (32.0-36.0); MEAN CORPUSCULAR HEMOGLOB 30.3 pg (26.0-34.0); MEAN CORPUSCULAR VOLUME 88.3 fL (80-100); MEAN PLATELET VOLUME 10.3 fL (9.2-13.0); MONOCYTES 6.9 %; MONOCYTES ABSOLUTE 0.82 10/3/uL (0.21-1.20); NEUTROPHILS 77.7 %; NEUTROPHILS ABSOLUTE 9.31 10/3/uL (2.02-8.40); RBC DISTRIBUTION WIDTH 17.3 % (12.0-16.0); RED CELL COUNT 2.74 10/6/uL (4.0-5.6)
[2016-06-12 05:09] LABS: MANUAL DIFF NO %; PLATELET COUNT 155 10/3/uL (150-400)
[2016-06-12 05:14] LABS: CALCIUM, SERUM 8.7 MG/DL (8.5-10.4); CHLORIDE, SERUM 96 MMOL/L (96-112); CO2 (CARBON DIOXIDE) 27 MMOL/L (24-34); GLUCOSE, SERUM 102 MG/DL (60-99); POTASSIUM, SERUM 3.8 MMOL/L (3.5-5.3); SODIUM, SERUM 139 MMOL/L (135-148)
[2016-06-12 05:22] LABS: BUN (BLOOD UREA NITROGEN) 40 MG/DL (6-23); CREATININE 2.88 MG/DL (0.55-1.02); GFR AFRICAN AMERICAN 20 ML/MIN (>=60); GFR NON AFRICAN AMERICAN 18 ML/MIN (>=60)
[2016-06-13 06:34] LABS: BASOPHILS 1.1 %; BASOPHILS ABSOLUTE 0.08 10/3/uL (0.0-0.16); EOSINOPHILS 1.2 %; EOSINOPHILS ABSOLUTE 0.09 10/3/uL (0.0-0.53); HEMATOCRIT 22.9 % (36.0-48.0); HEMOGLOBIN 7.7 g/dL (12.0-16.0); IMMATURE GRANULOCYTES 0.4 %; IMMATURE GRANULOCYTES ABSOLUTE 0.03 10/3/uL (0.0-0.11); LYMPHOCYTES 17.2 %; LYMPHOCYTES ABSOLUTE 1.31 10/3/uL (0.67-4.30); MEAN CORPUS HGB CONC 33.6 g/dL (32.0-36.0); MEAN CORPUSCULAR HEMOGLOB 30.1 pg (26.0-34.0); MEAN CORPUSCULAR VOLUME 89.5 fL (80-100); MEAN PLATELET VOLUME 9.5 fL (9.2-13.0); MONOCYTES 8.9 %; MONOCYTES ABSOLUTE 0.68 10/3/uL (0.21-1.20); NEUTROPHILS 71.2 %; NEUTROPHILS ABSOLUTE 5.42 10/3/uL (2.02-8.40); PLATELET COUNT 179 10/3/uL (150-400); RBC DISTRIBUTION WIDTH 17.4 % (12.0-16.0); RED CELL COUNT 2.56 10/6/uL (4.0-5.6); WHITE BLOOD CELLS 7.6 10/3/uL (4.5-10.5)
[2016-06-13 06:38] LABS: MANUAL DIFF NO %
[2016-06-13 06:44] LABS: ALBUMIN 2.2 G/DL (3.5-5.0); CALCIUM, SERUM 8.1 MG/DL (8.5-10.4); CHLORIDE, SERUM 98 MMOL/L (96-112); CO2 (CARBON DIOXIDE) 29 MMOL/L (24-34); GLUCOSE, SERUM 110 MG/DL (60-99); POTASSIUM, SERUM 3.3 MMOL/L (3.5-5.3); SODIUM, SERUM 140 MMOL/L (135-148)
[2016-06-13 06:46] LABS: BUN (BLOOD UREA NITROGEN) 50 MG/DL (6-23); CREATININE 3.71 MG/DL (0.55-1.02); GFR AFRICAN AMERICAN 15 ML/MIN (>=60); GFR NON AFRICAN AMERICAN 13 ML/MIN (>=60)
[2016-06-14 06:39] LABS: BASOPHILS 1.7 %; BASOPHILS ABSOLUTE 0.12 10/3/uL (0.0-0.16); EOSINOPHILS 1.1 %; EOSINOPHILS ABSOLUTE 0.08 10/3/uL (0.0-0.53); HEMATOCRIT 23.3 % (36.0-48.0); HEMOGLOBIN 7.9 g/dL (12.0-16.0); IMMATURE GRANULOCYTES 0.3 %; IMMATURE GRANULOCYTES ABSOLUTE 0.02 10/3/uL (0.0-0.11); LYMPHOCYTES ABSOLUTE 1.48 10/3/uL (0.67-4.30); MEAN CORPUS HGB CONC 33.9 g/dL (32.0-36.0); MEAN CORPUSCULAR HEMOGLOB 30.4 pg (26.0-34.0); MEAN CORPUSCULAR VOLUME 89.6 fL (80-100); MONOCYTES 12.1 %; MONOCYTES ABSOLUTE 0.85 10/3/uL (0.21-1.20); NEUTROPHILS 63.8 %; PLATELET COUNT 180 10/3/uL (150-400); RBC DISTRIBUTION WIDTH 17.5 % (12.0-16.0); WHITE BLOOD CELLS 7.1 10/3/uL (4.5-10.5)
[2016-06-14 06:40] LABS: MANUAL DIFF NO %
[2016-06-14 06:52] LABS: ALBUMIN 2.3 G/DL (3.5-5.0); BUN (BLOOD UREA NITROGEN) 34 MG/DL (6-23); CALCIUM, SERUM 7.3 MG/DL (8.5-10.4); CHLORIDE, SERUM 98 MMOL/L (96-112); CO2 (CARBON DIOXIDE) 27 MMOL/L (24-34); CREATININE 3.13 MG/DL (0.55-1.02); GFR AFRICAN AMERICAN 18 ML/MIN (>=60); GFR NON AFRICAN AMERICAN 16 ML/MIN (>=60); GLUCOSE, SERUM 91 MG/DL (60-99); PHOSPHORUS, SERUM 3.8 MG/DL (2.5-4.5); POTASSIUM, SERUM 3.1 MMOL/L (3.5-5.3); SODIUM, SERUM 141 MMOL/L (135-148)
[2016-06-15 05:19] LABS: BASOPHILS 1.9 %; EOSINOPHILS 2.2 %; EOSINOPHILS ABSOLUTE 0.12 10/3/uL (0.0-0.53); HEMATOCRIT 24.3 % (36.0-48.0); HEMOGLOBIN 8.2 g/dL (12.0-16.0); IMMATURE GRANULOCYTES 0.2 %; IMMATURE GRANULOCYTES ABSOLUTE 0.01 10/3/uL (0.0-0.11); LYMPHOCYTES 27.6 %; LYMPHOCYTES ABSOLUTE 1.48 10/3/uL (0.67-4.30); MANUAL DIFF NO %; MEAN CORPUS HGB CONC 33.7 g/dL (32.0-36.0); MEAN CORPUSCULAR HEMOGLOB 30.3 pg (26.0-34.0); MEAN CORPUSCULAR VOLUME 89.7 fL (80-100); MEAN PLATELET VOLUME 9.4 fL (9.2-13.0); MONOCYTES ABSOLUTE 0.59 10/3/uL (0.21-1.20); NEUTROPHILS 57.1 %; NEUTROPHILS ABSOLUTE 3.06 10/3/uL (2.02-8.40); PLATELET COUNT 228 10/3/uL (150-400); RBC DISTRIBUTION WIDTH 17.3 % (12.0-16.0); RED CELL COUNT 2.71 10/6/uL (4.0-5.6); WHITE BLOOD CELLS 5.4 10/3/uL (4.5-10.5)
[2016-06-15 05:35] LABS: ALBUMIN 2.6 G/DL (3.5-5.0); BUN (BLOOD UREA NITROGEN) 32 MG/DL (6-23); CALCIUM, SERUM 7.6 MG/DL (8.5-10.4); CHLORIDE, SERUM 101 MMOL/L (96-112); CO2 (CARBON DIOXIDE) 28 MMOL/L (24-34); GFR AFRICAN AMERICAN 18 ML/MIN (>=60); GFR NON AFRICAN AMERICAN 16 ML/MIN (>=60); GLUCOSE, SERUM 89 MG/DL (60-99); PHOSPHORUS, SERUM 3.8 MG/DL (2.5-4.5); SGPT(ALT) 36 U/L (5-65); SODIUM, SERUM 140 MMOL/L (135-148); TOTAL BILIRUBIN 0.4 MG/DL (0-1.2)
[2016-06-15 05:38] LABS: A/G RATIO 0.8 (0.7-1.9); ALKALINE PHOSPHATASE 73 U/L (45-117); GLOBULIN 3.3 G/DL (2.5-4.1); POTASSIUM, SERUM 3.1 MMOL/L (3.5-5.3); SGOT(AST) 36 U/L (5-40); TOTAL PROTEIN 5.9 G/DL (6.0-8.5)
== END 2016-06-15 19:00 | DRG 870 ==
LOC: ER 16:19 → 5SO 18:14 → 1SO 21:09 → CCU 05-31 16:03 → 2SO 06-11 13:06
PROVIDERS: Emergency Medicine; Hospitalist; Internal Medicine; Internal Medicine Critical Care Medicine; Internal Medicine Gastroenterology; Internal Medicine Nephrology; Internal Medicine Pulmonary Disease; Registered Nurse; Student in an Organized Health Care Education/Training Program
PROC: 5A1955Z Respiratory Ventilation, Greater than 96 Consecutive Hours (ICD-10-PCS; principal; 2016-05-31)
PROC: 05HM33Z Insertion of Infusion Device into Right Internal Jugular Vein, Percutaneous Approach (ICD-10-PCS; 2016-05-31)
PROC: B5131ZA Fluoroscopy of Right Jugular Veins using Low Osmolar Contrast, Guidance (ICD-10-PCS; 2016-05-31)
PROC: 0BH17EZ Insertion of Endotracheal Airway into Trachea, Via Natural or Artificial Opening (ICD-10-PCS; 2016-05-31)
PROC: 30233N1 Transfusion of Nonautologous Red Blood Cells into Peripheral Vein, Percutaneous Approach (ICD-10-PCS; 2016-06-07)
PROC: 5A1D60Z (ICD-10-PCS; 2016-06-13)
DX: A41.9 Sepsis, unspecified organism (principal); K72.00 Acute and subacute hepatic failure without coma; R65.21 Severe sepsis with septic shock; A48.1 Legionnaires' disease; E87.2 Acidosis; J96.01 Acute respiratory failure with hypoxia; J96.02 Acute respiratory failure with hypercapnia; K50.90 Crohn's disease, unspecified, without complications; K85.90 Acute pancreatitis without necrosis or infection, unspecified; J10.00 Influenza due to other identified influenza virus with unspecified type of pneumonia; N17.9 Acute kidney failure, unspecified; E87.1 Hypo-osmolality and hyponatremia; M62.82 Rhabdomyolysis; Z99.11 Dependence on respirator [ventilator] status; E87.6 Hypokalemia; I48.0 Paroxysmal atrial fibrillation; F17.210 Nicotine dependence, cigarettes, uncomplicated; E88.2 Lipomatosis, not elsewhere classified; E86.9 Volume depletion, unspecified; N18.9 Chronic kidney disease, unspecified; B02.9 Zoster without complications; E66.9 Obesity, unspecified; Z68.31 Body mass index [BMI] 31.0-31.9, adult; Z79.01 Long term (current) use of anticoagulants; Z82.49 Family history of ischemic heart disease and other diseases of the circulatory system; Z88.8 Allergy status to other drugs, medicaments and biological substances; Z85.038 Personal history of other malignant neoplasm of large intestine; Z98.890 Other specified postprocedural states; Z88.2 Allergy status to sulfonamides
CPT/HCPCS: 31720; 36415; 36569; 36600; 70450; 71010; 71020; 71250; 74000; 74176; 76775; 80048; 80053; 80069; 80074; 80076; 81001; 82248; 82271; 82272; 82330; 82330-59; 82533; 82550; 82553; 82570; 82805; 82962; 83605; 83690; 83735; 83874; 83880; 84100; 84132; 84145; 84300; 84443; 84484; 85025; 85610; 85730; 86140; 86850; 86900; 86901; 86920; 87040; 87045; 87046; 87046-59; 87070; 87205; 87328; 87329; 87449; 87493; 87493-59; 87641; 87804; 87899; 87899-59; 89055; 92610-GN; 93005; 94002; 94003; 94640; 94660; 94770; 96374; 97110-GO; 97110-GP; 97162-GP; 97164-GP; 97166-GO; 97168-GO; 97535-GO; 99291; A9270-GY; C1751; C1752; C1894; C8929; C9113; G0257; J0282; J0610; J1956; J2248; J2405; J2543; J2550; J2920; J2930; J3010; P9016; P9045; P9047; Q9957